=== PATIENT | male | born 1945 | race Caucasian/White ===

== ENCOUNTER → 2017-08-09 | Outpatient (CLI) | payer MEDICARE, MEDICAID ==
[~2017-08-09] MED LIST: AMLO5TAB2 PO; GEMF600T3 PO; LEVE500T22 PO
[2017-08-09 11:52] LABS: Creatine Kinase IFCC 63 U/L (39-308)
[2017-08-09 13:29] LABS: Cholesterol 126 mg/dL (< 200); HDL Cholesterol 36 mg/dL (40-59); LDL Cholesterol 79 mg/dL (< 100); Triglycerides 146 mg/dL (< 150)
== END | disposition home or self-care (01) ==
LOC: LAB 09:45
PROVIDERS: ATTEND Internal Medicine
DX: K70.0 Alcoholic fatty liver (principal); E78.1 Pure hyperglyceridemia; M54.5 Low back pain; I10 Essential (primary) hypertension; N52.9 Male erectile dysfunction, unspecified
CPT/HCPCS: 36415; 80061; 82550; 84153; 85652

== ENCOUNTER → 2017-10-22 | Outpatient (CLI) | payer MEDICARE, OTHER ==
[2017-10-22 13:39] LABS: Urine Bacteria NONE SEEN /hpf (None Seen); Urine Blood Negative /uL (Negative); Urine Mucus FEW (None Seen); Urine Specific Gravity 1.018 (1.001-1.035); Urine WBC 3 /hpf (0 - 3)
== END | disposition home or self-care (01) ==
LOC: LAB 12:40
PROVIDERS: ATTEND Internal Medicine
DX: I10 Essential (primary) hypertension (principal); K76.0 Fatty (change of) liver, not elsewhere classified; E78.2 Mixed hyperlipidemia
CPT/HCPCS: 36415; 81001; 84443

== ENCOUNTER → 2017-10-31 | Outpatient (CLI) | payer MEDICARE, OTHER | END | disposition home or self-care (01) | LOC: XY 08:00 | PROVIDERS: ATTEND Internal Medicine | DX: I10 Essential (primary) hypertension (principal); Z86.73 Personal history of transient ischemic attack (TIA), and cerebral infarction without residual deficits; Z87.891 Personal history of nicotine dependence | CPT/HCPCS: 93886 ==

== ENCOUNTER → 2017-11-12 | Outpatient (CLI) | payer MEDICARE, OTHER | END | disposition home or self-care (01) | LOC: XYW 07:49 | PROVIDERS: ATTEND Internal Medicine | DX: I70.0 Atherosclerosis of aorta (principal); I35.1 Nonrheumatic aortic (valve) insufficiency; I10 Essential (primary) hypertension; Z87.891 Personal history of nicotine dependence | CPT/HCPCS: 93306 ==

== ENCOUNTER → 2019-08-25 | Outpatient (CLI) | payer MEDICARE, OTHER ==
[~2019-08-25] MED LIST changes: +AMLO5TAB15 PO; -AMLO5TAB2 PO; -GEMF600T3 PO; +GEMF600T7 PO; +PERCOT PO; +TAM04C PO
== END | disposition home or self-care (01) ==
LOC: LAB 10:31
PROVIDERS: ATTEND Surgery
DX: Z01.812 Encounter for preprocedural laboratory examination (principal)
CPT/HCPCS: 36415; 82565; 84520

== ENCOUNTER → 2019-09-23 | Outpatient (CLI) | payer MEDICARE, OTHER ==
[~2019-09-23] MED LIST changes: +CHLO25TA22 PO; -LEVE500T22 PO; +LEVE500T32 PO; +NAP500T PO; +NIAC500T58 PO; +TIZA4CAP PO; +TRAM50TA2 PO
[2019-09-23 14:44] LABS: BUN/Creatinine Ratio 19.4; Calcium 9.3 mg/dL (8.5-10.1)
[2019-09-23 14:52] LABS: Potassium 2.7 mmol/L (3.5-5.1)
== END | disposition home or self-care (01) ==
LOC: LAB 13:56
PROVIDERS: ATTEND Internal Medicine
DX: I10 Essential (primary) hypertension (principal)
CPT/HCPCS: 36415; 80048; 83735

== ENCOUNTER 2019-11-04 07:47 | Inpatient (IN) | payer MEDICARE, OTHER ==
[2019-11-02 12:02] LABS: Basophils # (auto) 0.1 10 ^3/uL (0-0.2); Basophils % (auto) 0.8 % (0.0-2.0); Eosinophils # (auto) 0.3 10 ^3/uL (0-0.8); Eosinophils % (auto) 4.5 % (0.0-7.0); Hematocrit 42.5 % (41.0-53.0); Hemoglobin 14.5 g/dL (13.5-17.5); Lymphocytes # (auto) 1.8 10 ^3/uL (0.4-5.4); Lymphocytes % (auto) 25.8 % (10.0-50.0); Mean Corpuscular Hemoglobin 30.4 pg (28.0-32.0); Mean Corpuscular Volume 89.4 fL (80.0-100.0); Monocytes # (auto) 0.6 10 ^3/uL (0-1.3); Monocytes % (auto) 9.1 % (0.0-12.0); Neutrophils # (auto) 4.1 10 ^3/uL (1.6-8.6); Neutrophils % (auto) 59.8 % (37.0-80.0); Nucleated Red Blood Cells % 0.1 %; Platelet Count (auto) 220 10^3/uL (140-450); Red Blood Cells 4.75 10^6/uL (4.5-5.90); Red Cell Distribution Width 13.3 % (11.8-14.3); White Blood Cell 6.8 10^3/uL (4.4-10.8)
[2019-11-02 12:15] LABS: INR 1.02 (0.9-1.15); Partial Thromboplastin Time 26.7 sec (23.64-32.05)
[2019-11-02 12:22] LABS: Urine Bacteria NONE SEEN /hpf (None Seen); Urine Blood Negative /uL (Negative); Urine Mucus FEW (None Seen); Urine Specific Gravity 1.023 (1.001-1.035); Urine WBC 5 /hpf (0 - 3)
[2019-11-02 12:23] LABS: Albumin 3.5 g/dL (3.4-5.0); Calcium 8.9 mg/dL (8.5-10.1); Potassium 3.4 mmol/L (3.5-5.1)
[2019-11-02 12:26] LABS: Bilirubin, Total 0.4 mg/dL (0.2-1.0); Total Protein 6.7 g/dL (6.4-8.2)
[2019-11-04] VITALS (57 sets, daily range): BP systolic 84–206; BP diastolic 48–115
[~2019-11-04] VITALS: Ht 177.8 cm; Wt 66.1 kg
[~2019-11-04 07:47] MED LIST changes: +LEVE500T22 PO; -LEVE500T32 PO; -TAM04C PO
[2019-11-04] MEDS ORDERED: ceFAZolin 1GM/50ML 50 ML IV ONE (08:31)
[2019-11-04] MEDS ORDERED: POVIDONE IODINE 10 % TOPICAL OINT 30GM TOP ONE (09:57)
[2019-11-04] MEDS ORDERED: MIDAZOLAM HCL 1MG/1ML-2 ML VIAL ONE ×2 (10:02→11:25)
[2019-11-04] MEDS ORDERED: LIDOCAINE 1% (LOCAL ANESTH.) PF 5ml SDV ONE (10:03)
[2019-11-04] MEDS ORDERED: ROCURONIUM 10MG/ML 10ML VIAL IV ONE (10:03)
[2019-11-04] MEDS ORDERED: ETOMIDATE (2MG/ML) 20ML VIAL IV ONE (10:03)
[2019-11-04] MEDS ORDERED: HYDROmorphone HCL 2 MG/ML VL IV PRN ×3 (10:30→13:00)
[2019-11-04] MEDS ORDERED: ONDANSETRON HCL 4 MG/2 ML VIAL IV PRN (10:30)
[2019-11-04] MEDS ORDERED: NALOXONE HCL 0.4 MG/ML VIAL IV PRN (10:30)
[2019-11-04] MEDS ORDERED: fentaNYL CITRATE 100 MCG/2 ML VL ONE (10:32)
[2019-11-04] MEDS ORDERED: SODIUM CHLORIDE LOCK 10 ML ONE ×2 (10:33→10:47)
[2019-11-04] MEDS ORDERED: GLYCOPYRROLATE 0.2 MG/ML 1ML VIAL ONE (10:42)
[2019-11-04] MEDS ORDERED: PHENYLEPHRINE HCL 10 MG/ML VL ONE (10:47)
[2019-11-04] MEDS ORDERED: STERILE WATER 10 ML ONE ×2 (10:49→11:05)
[2019-11-04] MEDS ORDERED: ePHEDrine SULFATE 50 MG/ML AMP ONE (10:49)
[2019-11-04] MEDS ORDERED: ALBUMIN 25% 100 ML IV ONE (10:51)
[2019-11-04] MEDS ORDERED: D5W/SOD CHL 0.45%/KCL 20MEQ 1,000 ML IV SCH (12:15)
[2019-11-04] MEDS ORDERED: MIDAZOLAM HCL 5 MG/ML-1ML VIAL ONE (12:26)
[2019-11-04] MEDS ORDERED: MIDAZOLAM HCL 5 MG/ML-1ML VIAL IV ONE ×2 (12:28→12:30)
[2019-11-04] MEDS ORDERED: PANTOPRAZOLE 40 MG/10 ML VIAL INJ IV ONE (12:30)
[2019-11-04] MEDS: fentaNYL Drip 2500mCg/250mlNS 250 ML IV SCH (12:49)
[2019-11-04] MEDS: MIDAZOLAM DRIP 50 mg/50mL 50 ML IV SCH (12:49)
[2019-11-04] MEDS ORDERED: NITROGLYCERIN 0.4 MG SL TAB SL PRN (13:00)
[2019-11-04] MEDS ORDERED: MORPHINE SULF INJ 2 MG/ML SYRINGE 1ML IV PRN (13:00)
[2019-11-04] MEDS ORDERED: MIDAZOLAM DRIP 50 mg/50mL 50 ML IV ONE (13:10)
[2019-11-04] MEDS ORDERED: fentaNYL Drip 2500mCg/250mlNS 250 ML IV ONE (13:10)
[2019-11-04] MEDS ORDERED: NOREPINEPHRINE 8 MG/250ML KIT 250 ML IV ONE (13:22)
[2019-11-04 13:27] LABS: Basophils # (auto) 0 10 ^3/uL (0-0.2); Basophils % (auto) 0.3 % (0.0-2.0); Eosinophils # (auto) 0.2 10 ^3/uL (0-0.8); Eosinophils % (auto) 1.8 % (0.0-7.0); Hematocrit 37.5 % (41.0-53.0); Hemoglobin 12.9 g/dL (13.5-17.5); Lymphocytes # (auto) 1.5 10 ^3/uL (0.4-5.4); Lymphocytes % (auto) 15.1 % (10.0-50.0); Mean Corpuscular Hemoglobin 30.9 pg (28.0-32.0); Mean Corpuscular Hgb Conc. 34.3 g/dL (32.0-36.0); Mean Corpuscular Volume 90.1 fL (80.0-100.0); Monocytes # (auto) 0.8 10 ^3/uL (0-1.3); Monocytes % (auto) 8.3 % (0.0-12.0); Neutrophils # (auto) 7.3 10 ^3/uL (1.6-8.6); Neutrophils % (auto) 74.5 % (37.0-80.0); Platelet Count (auto) 162 10^3/uL (140-450); Red Blood Cells 4.16 10^6/uL (4.5-5.90); White Blood Cell 9.7 10^3/uL (4.4-10.8)
[2019-11-04] MEDS ORDERED: NOREPINEPHRINE 8 MG/250ML KIT 250 ML IV SCH (13:30)
[2019-11-04 13:46] LABS: Albumin 3.1 g/dL (3.4-5.0); BUN/Creatinine Ratio 25.8; Calcium 7.8 mg/dL (8.5-10.1); Magnesium 1.9 mg/dL (1.6-2.6); Potassium 3.4 mmol/L (3.5-5.1)
[2019-11-04 13:48] LABS: Bilirubin, Total 0.9 mg/dL (0.2-1.0); INR 1.2 (0.9-1.15); Partial Thromboplastin Time 28.2 sec (23.64-32.05); Total Protein 5.3 g/dL (6.4-8.2)
[2019-11-04] MEDS: ceFAZolin 1GM/50ML 50 ML IV SCH ×2 (14:00→22:00)
[2019-11-04] MEDS: SODIUM CHLORIDE 0.9% 1,000 ML IV SCH ×2 (19:48→21:00)
[2019-11-04] MEDS: NOREPINEPHRINE 8 MG/250ML KIT 250 ML IV SCH (20:45)
[2019-11-04 22:18] LABS: Basophils # (auto) 0 10 ^3/uL (0-0.2); Basophils % (auto) 0.5 % (0.0-2.0); Eosinophils # (auto) 0.1 10 ^3/uL (0-0.8); Eosinophils % (auto) 1.3 % (0.0-7.0); Hemoglobin 12.3 g/dL (13.5-17.5); Lymphocytes # (auto) 1.5 10 ^3/uL (0.4-5.4); Lymphocytes % (auto) 17.5 % (10.0-50.0); Mean Corpuscular Hemoglobin 30.6 pg (28.0-32.0); Mean Corpuscular Hgb Conc. 34.2 g/dL (32.0-36.0); Mean Corpuscular Volume 89.5 fL (80.0-100.0); Monocytes # (auto) 0.8 10 ^3/uL (0-1.3); Monocytes % (auto) 9.2 % (0.0-12.0); Neutrophils # (auto) 6.1 10 ^3/uL (1.6-8.6); Neutrophils % (auto) 71.5 % (37.0-80.0); Nucleated Red Blood Cells % 0.2 %; Platelet Count (auto) 141 10^3/uL (140-450); Red Blood Cells 4.02 10^6/uL (4.5-5.90); Red Cell Distribution Width 14.2 % (11.8-14.3); White Blood Cell 8.5 10^3/uL (4.4-10.8)
[2019-11-04 22:32] LABS: BUN/Creatinine Ratio 32.2; Calcium 7.5 mg/dL (8.5-10.1); Potassium 3.5 mmol/L (3.5-5.1)
[2019-11-04 22:34] LABS: INR 1.12 (0.9-1.15); Partial Thromboplastin Time 29.4 sec (23.64-32.05)
[2019-11-05] VITALS (106 sets, daily range): BP systolic 81–129; BP diastolic 32–68
[2019-11-05] MEDS: MIDAZOLAM DRIP 50 mg/50mL 50 ML IV SCH ×2 (01:30→10:33)
[2019-11-05 04:22] LABS: Basophils # (auto) 0 10 ^3/uL (0-0.2); Basophils % (auto) 0.3 % (0.0-2.0); Eosinophils # (auto) 0.2 10 ^3/uL (0-0.8); Eosinophils % (auto) 3.1 % (0.0-7.0); Hematocrit 34.8 % (41.0-53.0); Lymphocytes # (auto) 1.7 10 ^3/uL (0.4-5.4); Lymphocytes % (auto) 22.1 % (10.0-50.0); Mean Corpuscular Hemoglobin 30.8 pg (28.0-32.0); Mean Corpuscular Hgb Conc. 34.4 g/dL (32.0-36.0); Mean Corpuscular Volume 89.6 fL (80.0-100.0); Monocytes # (auto) 0.9 10 ^3/uL (0-1.3); Monocytes % (auto) 11.8 % (0.0-12.0); Neutrophils # (auto) 4.7 10 ^3/uL (1.6-8.6); Neutrophils % (auto) 62.7 % (37.0-80.0); Platelet Count (auto) 146 10^3/uL (140-450); Red Blood Cells 3.88 10^6/uL (4.5-5.90); Red Cell Distribution Width 14.3 % (11.8-14.3); White Blood Cell 7.5 10^3/uL (4.4-10.8)
[2019-11-05 04:40] LABS: Albumin 2.7 g/dL (3.4-5.0); Calcium 7.5 mg/dL (8.5-10.1); Potassium 3.4 mmol/L (3.5-5.1)
[2019-11-05 04:45] LABS: Total Protein 4.7 g/dL (6.4-8.2)
[2019-11-05] MEDS: SODIUM CHLORIDE 0.9% 1,000 ML IV SCH ×3 (04:49→21:00)
[2019-11-05] MEDS: ceFAZolin 1GM/50ML 50 ML IV SCH ×3 (05:37→22:00)
[2019-11-05] MEDS: PANTOPRAZOLE 40 MG/10 ML VIAL INJ IV SCH (10:32)
[2019-11-05] MEDS ORDERED: POTASSIUM CHLORIDE 40 MEQ, LIDOCAINE 1% (LOCAL ANESTH.) 4 ML in SODIUM CHL 0.9% 100 ML IV ONE (13:15)
[2019-11-05] MEDS: fentaNYL Drip 2500mCg/250mlNS 250 ML IV SCH (13:23)
[2019-11-05] MEDS: NOREPINEPHRINE 8 MG/250ML KIT 250 ML IV SCH (14:51)
[2019-11-05] MEDS: PROPOFOL 100 ML IV SCH (17:59)
[2019-11-06] VITALS (78 sets, daily range): BP systolic 74–202; BP diastolic 37–126
[2019-11-06 03:56] LABS: Basophils # (auto) 0 10 ^3/uL (0-0.2); Basophils % (auto) 0.4 % (0.0-2.0); Eosinophils # (auto) 0.3 10 ^3/uL (0-0.8); Eosinophils % (auto) 3.1 % (0.0-7.0); Hematocrit 34.1 % (41.0-53.0); Hemoglobin 11.6 g/dL (13.5-17.5); Lymphocytes # (auto) 1.9 10 ^3/uL (0.4-5.4); Lymphocytes % (auto) 18.5 % (10.0-50.0); Mean Corpuscular Hemoglobin 30.8 pg (28.0-32.0); Mean Corpuscular Hgb Conc. 34.1 g/dL (32.0-36.0); Mean Corpuscular Volume 90.2 fL (80.0-100.0); Monocytes # (auto) 1.2 10 ^3/uL (0-1.3); Monocytes % (auto) 11.2 % (0.0-12.0); Neutrophils # (auto) 6.9 10 ^3/uL (1.6-8.6); Neutrophils % (auto) 66.8 % (37.0-80.0); Platelet Count (auto) 143 10^3/uL (140-450); Red Blood Cells 3.78 10^6/uL (4.5-5.90); Red Cell Distribution Width 14.5 % (11.8-14.3); White Blood Cell 10.4 10^3/uL (4.4-10.8)
[2019-11-06 04:10] LABS: INR 1.08 (0.9-1.15); Partial Thromboplastin Time 34.3 sec (23.64-32.05)
[2019-11-06 04:18] LABS: Potassium 3.2 mmol/L (3.5-5.1)
[2019-11-06 04:27] LABS: Albumin 2.4 g/dL (3.4-5.0); BUN/Creatinine Ratio 28.3; Bilirubin, Total 0.6 mg/dL (0.2-1.0); Total Protein 4.8 g/dL (6.4-8.2)
[2019-11-06] MEDS: SODIUM CHLORIDE 0.9% 1,000 ML IV SCH ×3 (05:03→15:00)
[2019-11-06] MEDS: ceFAZolin 1GM/50ML 50 ML IV SCH ×3 (06:00→22:00)
[2019-11-06] MEDS: fentaNYL Drip 2500mCg/250mlNS 250 ML IV SCH (07:48)
[2019-11-06] MEDS: PANTOPRAZOLE 40 MG/10 ML VIAL INJ IV SCH (09:40)
[2019-11-06] MEDS: PROPOFOL 100 ML IV SCH (11:50)
[2019-11-06] MEDS: MIDAZOLAM DRIP 50 mg/50mL 50 ML IV SCH (12:49)
[2019-11-06] MEDS: DexMEDEtomidine 400 MCG in D5W 5% 96 ML IV SCH (13:23)
[2019-11-06] MEDS ORDERED: POTASSIUM CHLORIDE 40 MEQ, LIDOCAINE 1% (LOCAL ANESTH.) 4 ML in SODIUM CHL 0.9% 100 ML IV ONE (15:00)
[2019-11-06] MEDS: HYDROmorphone HCL 2 MG/ML VL IV PRN ×3 (15:47→21:22)
[2019-11-06] MEDS: NOREPINEPHRINE 8 MG/250ML KIT 250 ML IV SCH (20:45)
[2019-11-07] VITALS (18 sets, daily range): BP systolic 114–158; BP diastolic 27–90
[2019-11-07] MEDS: HYDROmorphone HCL 2 MG/ML VL IV PRN ×6 (01:45→23:20)
[2019-11-07] MEDS: SODIUM CHLORIDE 0.9% 1,000 ML IV SCH (04:25)
[2019-11-07 04:35] LABS: Basophils # (auto) 0 10 ^3/uL (0-0.2); Basophils % (auto) 0.4 % (0.0-2.0); Eosinophils # (auto) 0.2 10 ^3/uL (0-0.8); Eosinophils % (auto) 1.7 % (0.0-7.0); Hematocrit 34.8 % (41.0-53.0); Hemoglobin 11.9 g/dL (13.5-17.5); Lymphocytes # (auto) 1.4 10 ^3/uL (0.4-5.4); Lymphocytes % (auto) 16.3 % (10.0-50.0); Mean Corpuscular Hemoglobin 30.7 pg (28.0-32.0); Mean Corpuscular Hgb Conc. 34.2 g/dL (32.0-36.0); Mean Corpuscular Volume 89.9 fL (80.0-100.0); Monocytes # (auto) 1.1 10 ^3/uL (0-1.3); Neutrophils # (auto) 6.1 10 ^3/uL (1.6-8.6); Neutrophils % (auto) 69.6 % (37.0-80.0); Nucleated Red Blood Cells % 0.1 %; Platelet Count (auto) 141 10^3/uL (140-450); Red Blood Cells 3.87 10^6/uL (4.5-5.90); Red Cell Distribution Width 13.7 % (11.8-14.3); White Blood Cell 8.8 10^3/uL (4.4-10.8)
[2019-11-07 04:54] LABS: Calcium 8.6 mg/dL (8.5-10.1)
[2019-11-07 04:56] LABS: Potassium 2.7 mmol/L (3.5-5.1)
[2019-11-07] MEDS: ceFAZolin 1GM/50ML 50 ML IV SCH ×3 (06:00→22:00)
[2019-11-07] MEDS ORDERED: POTASSIUM CHL 20MEQ/100ML 100 ML IV SCH (07:30)
[2019-11-07] MEDS: PANTOPRAZOLE 40 MG/10 ML VIAL INJ IV SCH (08:25)
[2019-11-07] MEDS: POTASSIUM CHL 20MEQ/100ML 100 ML IV SCH ×3 (08:26→12:10)
[2019-11-07] MEDS: fentaNYL Drip 2500mCg/250mlNS 250 ML IV SCH (09:48)
[2019-11-07] MEDS: MIDAZOLAM DRIP 50 mg/50mL 50 ML IV SCH (09:48)
[2019-11-07] MEDS: PROPOFOL 100 ML IV SCH (09:49)
[2019-11-07] MEDS: DexMEDEtomidine 400 MCG in D5W 5% 96 ML IV SCH (09:49)
[2019-11-07] MEDS ORDERED: ENOXAPARIN SOD 30 MG/0.3 ML SYRINGE SC ONE (11:30)
[2019-11-07] MEDS ORDERED: PPN PER PHARMACY 0 ML IV SCH ×2 (14:45→15:00)
[2019-11-07 14:57] LABS: Phosphorus 2.1 mg/dL (2.5-4.90)
[2019-11-07 15:01] LABS: Pre Albumin 11.5 mg/dL (20.0-40.0)
[2019-11-07] MEDS ORDERED: POTASSIUM PHOSPHATE 22 MEQ in SODIUM CHL 0.9% 100 ML IV ONE (15:15)
[2019-11-07] MEDS: SOD CHL 0.9%/ KCL 40MEQ 1,000 ML IV SCH (15:24)
[2019-11-07] MEDS ORDERED: AMINO ACID INFUSION IN D5W 2,000 ML IV ONE (20:00)
[2019-11-08] VITALS: BP 137/76
[2019-11-08] MEDS ORDERED: DEXTROSE (50%) 50ML SYRG IV SCH
[2019-11-08] MEDS: HYDROmorphone HCL 2 MG/ML VL IV PRN ×4 (02:58→20:04)
[2019-11-08 03:59] LABS: Basophils # (auto) 0 10 ^3/uL (0-0.2); Basophils % (auto) 0.5 % (0.0-2.0); Eosinophils # (auto) 0.4 10 ^3/uL (0-0.8); Eosinophils % (auto) 6.4 % (0.0-7.0); Hematocrit 31.7 % (41.0-53.0); Hemoglobin 11.1 g/dL (13.5-17.5); Lymphocytes # (auto) 1.2 10 ^3/uL (0.4-5.4); Lymphocytes % (auto) 19.7 % (10.0-50.0); Mean Corpuscular Hemoglobin 31.1 pg (28.0-32.0); Mean Corpuscular Volume 88.9 fL (80.0-100.0); Monocytes # (auto) 0.8 10 ^3/uL (0-1.3); Monocytes % (auto) 13.3 % (0.0-12.0); Neutrophils # (auto) 3.7 10 ^3/uL (1.6-8.6); Neutrophils % (auto) 60.1 % (37.0-80.0); Platelet Count (auto) 153 10^3/uL (140-450); Red Blood Cells 3.57 10^6/uL (4.5-5.90); Red Cell Distribution Width 13.8 % (11.8-14.3); White Blood Cell 6.2 10^3/uL (4.4-10.8)
[2019-11-08 04:15] LABS: Potassium 3.1 mmol/L (3.5-5.1)
[2019-11-08 04:22] LABS: Albumin 2.5 g/dL (3.4-5.0); BUN/Creatinine Ratio 18.4; Bilirubin, Total 0.7 mg/dL (0.2-1.0); Calcium 8.4 mg/dL (8.5-10.1); Phosphorus 2.2 mg/dL (2.5-4.90); Total Protein 5.3 g/dL (6.4-8.2)
[2019-11-08] MEDS: ceFAZolin 1GM/50ML 50 ML IV SCH ×3 (04:55→20:04)
[2019-11-08] MEDS: SOD CHL 0.9%/ KCL 40MEQ 1,000 ML IV SCH ×2 (04:55→14:10)
[2019-11-08] MEDS: ACCU-CHEK COMFORT CURVE STRIP VI SCH ×4 (06:00→17:03)
[2019-11-08] MEDS: InsuLIN REG 1unit/0.01ml Soln (100units/ml) SC SCH ×4 (06:00→17:03)
[2019-11-08 08:00] VITALS: BP 137/80
[2019-11-08] MEDS: PANTOPRAZOLE 40 MG/10 ML VIAL INJ IV SCH (08:29)
[2019-11-08] MEDS: POTASSIUM CHL 20MEQ/100ML 100 ML IV SCH ×2 (08:30→10:52)
[2019-11-08] MEDS: ENOXAPARIN SOD 30 MG/0.3 ML SYRINGE SC SCH (09:24)
[2019-11-08 11:28] VITALS: BP 169/80
[2019-11-08] MEDS ORDERED: hydrALAZINE HCL 20 MG/ML VL IV ONE (13:15)
[2019-11-08 15:41] VITALS: BP 142/70
[2019-11-08] MEDS ORDERED: hydrALAZINE HCL 20 MG/ML VL IV PRN (18:00)
[2019-11-08] MEDS: TAMSULOSIN HYDROCHLORIDE 0.4 MG CAP PO SCH (18:21)
[2019-11-08 20:00] VITALS: BP 144/76
[2019-11-08] MEDS ORDERED: PPN PER PHARMACY IV NR ×9 (20:00)
[2019-11-08] MEDS: levETIRAcetam 500 MG TAB PO SCH (20:03)
[2019-11-09] VITALS: BP 144/76
[2019-11-09] MEDS: HYDROmorphone HCL 2 MG/ML VL IV PRN ×2 (00:45→08:25)
[2019-11-09 04:00] VITALS: BP 101/48
[2019-11-09 04:08] LABS: Albumin 2.6 g/dL (3.4-5.0); Calcium 8.8 mg/dL (8.5-10.1); Magnesium 2.2 mg/dL (1.6-2.6)
[2019-11-09 04:12] LABS: Bilirubin, Total 0.6 mg/dL (0.2-1.0); Phosphorus 2.4 mg/dL (2.5-4.90); Total Protein 5.4 g/dL (6.4-8.2)
[2019-11-09 04:17] LABS: Potassium 2.9 mmol/L (3.5-5.1)
[2019-11-09 04:20] LABS: BUN/Creatinine Ratio 20.8
[2019-11-09] MEDS ORDERED: SODIUM PHOSPHATES 24 MEQ in SODIUM CHL 0.9% 100 ML IV ONE (05:30)
[2019-11-09] MEDS ORDERED: POTASSIUM EFFERVESENT TAB 25 MEQ PO ONE (05:30)
[2019-11-09] MEDS: InsuLIN REG 1unit/0.01ml Soln (100units/ml) SC SCH ×2 (06:00)
[2019-11-09] MEDS: ACCU-CHEK COMFORT CURVE STRIP VI SCH ×2 (06:28)
[2019-11-09] MEDS: POTASSIUM CHL 20MEQ/100ML 100 ML IV SCH ×3 (06:58→09:56)
[2019-11-09] MEDS: ceFAZolin 1GM/50ML 50 ML IV SCH ×3 (06:59→21:55)
[2019-11-09 07:40] VITALS: BP 103/55
[2019-11-09] MEDS: levETIRAcetam 500 MG TAB PO SCH ×2 (09:52→21:55)
[2019-11-09] MEDS: PANTOPRAZOLE 40 MG/10 ML VIAL INJ IV SCH (09:52)
[2019-11-09] MEDS: ENOXAPARIN SOD 30 MG/0.3 ML SYRINGE SC SCH (09:59)
[2019-11-09 11:40] VITALS: BP 109/60
[2019-11-09 12:08] LABS: Phosphorus 3.3 mg/dL (2.5-4.90)
[2019-11-09] MEDS: traMADol HCL 50 MG TAB PO PRN ×2 (12:21→18:28)
[2019-11-09 15:50] VITALS: BP 130/70
[2019-11-09] MEDS: TAMSULOSIN HYDROCHLORIDE 0.4 MG CAP PO SCH (18:28)
[2019-11-10] VITALS: BP 148/76
[2019-11-10 04:00] VITALS: BP 153/78
[2019-11-10 04:08] LABS: BUN/Creatinine Ratio 24.5; Calcium 8.9 mg/dL (8.5-10.1); Potassium 3.3 mmol/L (3.5-5.1)
[2019-11-10] MEDS: ceFAZolin 1GM/50ML 50 ML IV SCH ×3 (05:39→23:16)
[2019-11-10] MEDS: traMADol HCL 50 MG TAB PO PRN ×2 (05:54→18:20)
[2019-11-10] MEDS: POTASSIUM CHL 20MEQ/100ML 100 ML IV SCH ×2 (06:40→08:30)
[2019-11-10 09:00] VITALS: BP 148/89
[2019-11-10] MEDS: levETIRAcetam 500 MG TAB PO SCH ×2 (09:08→23:15)
[2019-11-10] MEDS: ENOXAPARIN SOD 30 MG/0.3 ML SYRINGE SC SCH (09:09)
[2019-11-10] MEDS: HYDROmorphone HCL 2 MG/ML VL IV PRN ×3 (10:52→23:20)
[2019-11-10] MEDS ORDERED: POTASSIUM CHL 20 Meq TABLET PO ONE (12:15)
[2019-11-10] MEDS ORDERED: amLODIPine BESYLATE 5 MG TAB PO ONE (12:15)
[2019-11-10 13:00] VITALS: BP 113/77
[2019-11-10 17:00] VITALS: BP 117/73
[2019-11-10] MEDS: TAMSULOSIN HYDROCHLORIDE 0.4 MG CAP PO SCH (18:04)
[2019-11-10 22:00] VITALS: BP 123/58
[2019-11-11 05:00] VITALS: BP 120/70
[2019-11-11 05:43] LABS: Basophils # (auto) 0 10 ^3/uL (0-0.2); Eosinophils # (auto) 0.4 10 ^3/uL (0-0.8); Eosinophils % (auto) 10.3 % (0.0-7.0); Hematocrit 33.3 % (41.0-53.0); Hemoglobin 11.6 g/dL (13.5-17.5); Lymphocytes # (auto) 1.2 10 ^3/uL (0.4-5.4); Lymphocytes % (auto) 28.9 % (10.0-50.0); Mean Corpuscular Hemoglobin 30.9 pg (28.0-32.0); Mean Corpuscular Hgb Conc. 34.7 g/dL (32.0-36.0); Monocytes # (auto) 0.6 10 ^3/uL (0-1.3); Monocytes % (auto) 13.3 % (0.0-12.0); Neutrophils % (auto) 46.5 % (37.0-80.0); Nucleated Red Blood Cells % 0.1 %; Platelet Count (auto) 205 10^3/uL (140-450); Red Blood Cells 3.75 10^6/uL (4.5-5.90); Red Cell Distribution Width 14.2 % (11.8-14.3); White Blood Cell 4.2 10^3/uL (4.4-10.8)
[2019-11-11 05:56] LABS: Albumin 2.9 g/dL (3.4-5.0); Calcium 8.9 mg/dL (8.5-10.1); Potassium 3.7 mmol/L (3.5-5.1)
[2019-11-11 06:00] LABS: Bilirubin, Total 0.5 mg/dL (0.2-1.0); Total Protein 5.9 g/dL (6.4-8.2)
[2019-11-11] MEDS: ceFAZolin 1GM/50ML 50 ML IV SCH ×2 (06:09→13:57)
[2019-11-11] MEDS: traMADol HCL 50 MG TAB PO PRN ×2 (06:10→13:57)
[2019-11-11 08:00] VITALS: BP 126/69
[2019-11-11] MEDS ORDERED: amLODIPine BESYLATE 5 MG TAB PO SCH (10:00)
[2019-11-11] MEDS: levETIRAcetam 500 MG TAB PO SCH (10:30)
[2019-11-11 13:00] VITALS: BP 149/80
[2019-11-11 15:56] VITALS: BP 128/65
== END 2019-11-11 17:50 | disposition home or self-care (01) | DRG 414 ==
LOC: SUR 07:47 → ICU WEST 07:48 → ICU CENTRL 11-07 09:33 → DOU IN ICU 11-07 10:10 → TELE-WESTW 11-10 07:30
PROVIDERS: ADMIT Surgery; ATTEND Internal Medicine
PROC: 0BH17EZ Insertion of Endotracheal Airway into Trachea, Via Natural or Artificial Opening (ICD-10-PCS; 2019-11-04)
PROC: 06Q80ZZ Repair Portal Vein, Open Approach (ICD-10-PCS; 2019-11-04)
PROC: 0FT40ZZ Resection of Gallbladder, Open Approach (ICD-10-PCS; 2019-11-04)
PROC: 0FJ44ZZ Inspection of Gallbladder, Percutaneous Endoscopic Approach (ICD-10-PCS; 2019-11-04)
PROC: 30233N1 Transfusion of Nonautologous Red Blood Cells into Peripheral Vein, Percutaneous Approach (ICD-10-PCS; 2019-11-04)
PROC: 30233K1 Transfusion of Nonautologous Frozen Plasma into Peripheral Vein, Percutaneous Approach (ICD-10-PCS; 2019-11-04)
PROC: 5A1945Z Respiratory Ventilation, 24-96 Consecutive Hours (ICD-10-PCS; principal; 2019-11-04 10:01)
DX: K80.10 Calculus of gallbladder with chronic cholecystitis without obstruction (principal); J96.00 Acute respiratory failure, unspecified whether with hypoxia or hypercapnia; K85.90 Acute pancreatitis without necrosis or infection, unspecified; I97.52 Accidental puncture and laceration of a circulatory system organ or structure during other procedure; J98.11 Atelectasis; E87.2 Acidosis; G25.81 Restless legs syndrome; N40.0 Benign prostatic hyperplasia without lower urinary tract symptoms; I10 Essential (primary) hypertension; G89.29 Other chronic pain; M54.5 Low back pain; D64.9 Anemia, unspecified; I95.9 Hypotension, unspecified; K66.0 Peritoneal adhesions (postprocedural) (postinfection); Z53.31 Laparoscopic surgical procedure converted to open procedure; Z79.899 Other long term (current) drug therapy; Z80.0 Family history of malignant neoplasm of digestive organs; Z82.0 Family history of epilepsy and other diseases of the nervous system; Y83.8 Other surgical procedures as the cause of abnormal reaction of the patient, or of later complication, without mention of misadventure at the time of the procedure
CPT/HCPCS: 36415; 36600; 71045; 74018; 80048; 80053; 81001; 82040; 82805; 82962; 83735; 84100; 84132; 84478; 85025; 85610; 85730; 86850; 86900; 86901; 86920; 87040; 87070; 87081; 87205; 87635; 94002; 94003; 97116; 97163; 97530; A4565; C9113; G0378; J0690; J2001; J2250; J2704; J3480; J7060; P9047

== ENCOUNTER → 2020-08-23 | Outpatient (CLI) | payer MEDICARE, OTHER ==
[~2020-08-23] MED LIST changes: +AMLO-489 PO; -AMLO5TAB15 PO; -CHLO25TA22 PO; -GEMF600T7 PO; -LEVE500T22 PO; +LEVE500T32 PO; -NAP500T PO; -NIAC500T58 PO; -PERCOT PO; -TIZA4CAP PO; -TRAM50TA2 PO
[2020-08-23 12:45] LABS: Basophils # (auto) 0.1 10 ^3/uL (0-0.2); Basophils % (auto) 0.8 % (0.0-2.0); Eosinophils # (auto) 0.3 10 ^3/uL (0-0.8); Eosinophils % (auto) 4.4 % (0.0-7.0); Hematocrit 43.3 % (41.0-53.0); Hemoglobin 15.1 g/dL (13.5-17.5); Lymphocytes # (auto) 1.7 10 ^3/uL (0.4-5.4); Lymphocytes % (auto) 28.3 % (10.0-50.0); Mean Corpuscular Hgb Conc. 34.8 g/dL (32.0-36.0); Mean Corpuscular Volume 91.9 fL (80.0-100.0); Monocytes # (auto) 0.6 10 ^3/uL (0-1.3); Monocytes % (auto) 10.4 % (0.0-12.0); Neutrophils # (auto) 3.4 10 ^3/uL (1.6-8.6); Neutrophils % (auto) 56.1 % (37.0-80.0); Nucleated Red Blood Cells % 0.2 %; Platelet Count (auto) 201 10^3/uL (140-450); Red Blood Cells 4.71 10^6/uL (4.5-5.90); Red Cell Distribution Width 12.4 % (11.8-14.3); White Blood Cell 6.1 10^3/uL (4.4-10.8)
[2020-08-23 14:02] LABS: Albumin 3.8 g/dL (3.4-5.0); BUN/Creatinine Ratio 18.2; Bilirubin, Total 0.5 mg/dL (0.2-1.0); CRP High Sensitivity 0.37 mg/dL (< 0.3); Calcium 9.5 mg/dL (8.5-10.1)
[2020-08-24 17:20] LABS: Urine Bacteria NONE SEEN /hpf (None Seen); Urine Blood Negative /uL (Negative); Urine Specific Gravity 1.012 (1.001-1.035); Urine WBC 2 /hpf (0 - 3)
== END | disposition home or self-care (01) ==
LOC: LAB 12:29
PROVIDERS: ATTEND Internal Medicine
DX: D64.9 Anemia, unspecified (principal); R73.9 Hyperglycemia, unspecified; N40.0 Benign prostatic hyperplasia without lower urinary tract symptoms; I10 Essential (primary) hypertension
CPT/HCPCS: 36415; 80053; 80061; 81001; 83036; 84153; 84443; 85025; 85652; 86141

== ENCOUNTER → 2020-08-23 | Outpatient (CLI) | payer MEDICARE, MEDICAID, OTHER | END | disposition home or self-care (01) | LOC: XYW 10:59 | PROVIDERS: ATTEND Internal Medicine | DX: M47.812 Spondylosis without myelopathy or radiculopathy, cervical region (principal); M50.31 Other cervical disc degeneration, high cervical region; M48.02 Spinal stenosis, cervical region; M47.813 Spondylosis without myelopathy or radiculopathy, cervicothoracic region; G95.89 Other specified diseases of spinal cord | CPT/HCPCS: 72141 ==

== ENCOUNTER → 2020-09-16 | Outpatient (CLI) | payer MEDICARE, OTHER, MEDICAID ==
[2020-09-16 13:07] LABS: Urine Bacteria NONE SEEN /hpf (None Seen); Urine Blood Negative /uL (Negative); Urine Mucus FEW (None Seen); Urine Specific Gravity 1.017 (1.001-1.035); Urine WBC 3 /hpf (0 - 3)
== END | disposition home or self-care (01) ==
LOC: LAB 12:48
PROVIDERS: ATTEND Internal Medicine
DX: N40.0 Benign prostatic hyperplasia without lower urinary tract symptoms (principal)
CPT/HCPCS: 81001

== ENCOUNTER → 2020-09-22 | Outpatient (CLI) | payer MEDICARE, OTHER | END | disposition home or self-care (01) | LOC: XYW 08:53 | PROVIDERS: ATTEND Internal Medicine | DX: K86.2 Cyst of pancreas (principal); N28.1 Cyst of kidney, acquired; Z90.49 Acquired absence of other specified parts of digestive tract | CPT/HCPCS: 74181 ==

== ENCOUNTER → 2021-06-30 | Outpatient (CLI) | payer MEDICARE, OTHER ==
[2021-06-30 15:07] LABS: Basophils # (auto) 0.1 10 ^3/uL (0-0.2); Basophils % (auto) 0.7 % (0.0-2.0); Eosinophils # (auto) 0.2 10 ^3/uL (0-0.8); Eosinophils % (auto) 2.2 % (0.0-7.0); Hemoglobin 14.7 g/dL (13.5-17.5); Lymphocytes # (auto) 2.2 10 ^3/uL (0.4-5.4); Lymphocytes % (auto) 22.9 % (10.0-50.0); Mean Corpuscular Hemoglobin 30.9 pg (28.0-32.0); Mean Corpuscular Hgb Conc. 34.1 g/dL (32.0-36.0); Mean Corpuscular Volume 90.5 fL (80.0-100.0); Monocytes # (auto) 0.8 10 ^3/uL (0-1.3); Monocytes % (auto) 8.8 % (0.0-12.0); Neutrophils # (auto) 6.2 10 ^3/uL (1.6-8.6); Neutrophils % (auto) 65.4 % (37.0-80.0); Red Blood Cells 4.76 10^6/uL (4.5-5.90); Red Cell Distribution Width 12.8 % (11.8-14.3); White Blood Cell 9.4 10^3/uL (4.4-10.8)
== END | disposition home or self-care (01) ==
LOC: LAB 14:43
PROVIDERS: ATTEND Internal Medicine
DX: M25.511 Pain in right shoulder (principal)
CPT/HCPCS: 36415; 85025; 85652

== ENCOUNTER → 2021-08-29 | Outpatient (CLI) | payer MEDICARE, OTHER ==
[~2021-08-29] MED LIST changes: +BUPIVACAINE HCL 0.25% P/F 10 ML VIAL ONE; +IOHEXOL 300 MG/ML 100ML BOTTLE IJ ONE; +LIDOCAINE 2%HCL (LOCAL ANESTH.) INJ 10ml MDV ONE; +methylPREDNISolone ACETATE 80 MG/ML VL ONE
== END | disposition home or self-care (01) ==
LOC: XY 12:36
PROVIDERS: ATTEND Orthopaedic Surgery Sports Medicine
DX: M25.511 Pain in right shoulder (principal); Z87.891 Personal history of nicotine dependence; Z82.49 Family history of ischemic heart disease and other diseases of the circulatory system
CPT/HCPCS: 20611; 73020; 73501; J1040; J2001; J3490; Q9967; 76000

== ENCOUNTER → 2021-09-28 | Day surgery (SDC) | payer MEDICARE, OTHER ==
[2021-09-26 12:11] LABS: Basophils # (auto) 0 10 ^3/uL (0-0.2); Basophils % (auto) 0.6 % (0.0-2.0); Eosinophils # (auto) 0.2 10 ^3/uL (0-0.8); Eosinophils % (auto) 2.6 % (0.0-7.0); Hematocrit 43.1 % (41.0-53.0); Lymphocytes # (auto) 2.4 10 ^3/uL (0.4-5.4); Lymphocytes % (auto) 30.5 % (10.0-50.0); Mean Corpuscular Hemoglobin 31.4 pg (28.0-32.0); Mean Corpuscular Hgb Conc. 34.8 g/dL (32.0-36.0); Mean Corpuscular Volume 90.3 fL (80.0-100.0); Monocytes # (auto) 0.9 10 ^3/uL (0-1.3); Monocytes % (auto) 11.3 % (0.0-12.0); Neutrophils # (auto) 4.3 10 ^3/uL (1.6-8.6); Nucleated Red Blood Cells % 0.2 %; Red Blood Cells 4.78 10^6/uL (4.5-5.90); Red Cell Distribution Width 13.7 % (11.8-14.3); White Blood Cell 7.9 10^3/uL (4.4-10.8)
[2021-09-26 12:28] LABS: INR 0.98 (0.9-1.15); Partial Thromboplastin Time 28.6 sec (23.6-33.0)
[2021-09-26 12:43] LABS: Potassium 3.3 mmol/L (3.5-5.1)
[2021-09-26 12:49] LABS: Albumin 3.5 g/dL (3.4-5.0); BUN/Creatinine Ratio 15.6; Bilirubin, Total 0.7 mg/dL (0.2-1.0); Calcium 9.1 mg/dL (8.5-10.1); Total Protein 6.8 g/dL (6.4-8.2)
[~2021-09-28] VITALS: Ht 177.8 cm; Wt 67.6 kg
[~2021-09-28] MED LIST changes: -BUPIVACAINE HCL 0.25% P/F 10 ML VIAL ONE; +FINA5TAB4 PO; -IOHEXOL 300 MG/ML 100ML BOTTLE IJ ONE; -LIDOCAINE 2%HCL (LOCAL ANESTH.) INJ 10ml MDV ONE; +MELO1TAB56 PO; +POTA-220 PO; +TAMS0.4C36 PO; +diphenhdrAMINE HCL 50 MG/1 ML VL ONE; -methylPREDNISolone ACETATE 80 MG/ML VL ONE
[2021-09-28] MEDS: MIDAZOLAM HCL 5 MG/ML-1ML VIAL ONE ×3 (09:21→09:31)
[2021-09-28] MEDS: fentaNYL CITRATE 100 MCG/2 ML VL ONE ×3 (09:21→09:31)
[2021-09-28 11:30] VITALS: BP 127/79
== END | disposition home or self-care (01) ==
LOC: GI 08:29
PROVIDERS: ATTEND Internal Medicine Gastroenterology
DX: Z12.11 Encounter for screening for malignant neoplasm of colon (principal); K63.89 Other specified diseases of intestine; K64.8 Other hemorrhoids; Z86.010 Personal history of colon polyps; Z20.822 Contact with and (suspected) exposure to COVID-19; Z87.891 Personal history of nicotine dependence; Z80.0 Family history of malignant neoplasm of digestive organs; Z82.0 Family history of epilepsy and other diseases of the nervous system
CPT/HCPCS: 36415; 45378; 80053; 85025; 85610; 85730; J1200; J2250; J3010; J7030; U0003; 99153; G0500

== ENCOUNTER → 2021-10-24 | Outpatient (CLI) | payer MEDICARE, OTHER ==
[~2021-10-24] MED LIST changes: -diphenhdrAMINE HCL 50 MG/1 ML VL ONE
[2021-10-24 10:31] LABS: Urine Bacteria NONE SEEN /hpf (None Seen); Urine Blood Negative /uL (Negative); Urine Specific Gravity 1.005 (1.001-1.035); Urine WBC 2 /hpf (0 - 3)
== END | disposition home or self-care (01) ==
LOC: LAB 09:45
PROVIDERS: ATTEND Internal Medicine
DX: I10 Essential (primary) hypertension (principal); I51.7 Cardiomegaly; N40.1 Benign prostatic hyperplasia with lower urinary tract symptoms; R54 Age-related physical debility; R06.02 Shortness of breath; E78.5 Hyperlipidemia, unspecified; J44.1 Chronic obstructive pulmonary disease with (acute) exacerbation
CPT/HCPCS: 36415; 81001; 83880; 84478; 85652

== ENCOUNTER → 2021-10-24 | Outpatient (CLI) | payer MEDICARE, OTHER | END | disposition home or self-care (01) | LOC: XYW 08:51 | PROVIDERS: ATTEND Internal Medicine | DX: I08.2 Rheumatic disorders of both aortic and tricuspid valves (principal) | CPT/HCPCS: 93306 ==

== ENCOUNTER → 2022-03-01 | Outpatient (CLI) | payer MEDICARE, OTHER, MEDICAID ==
[~2022-03-01] VITALS: Ht 175.3 cm; Wt 67.6 kg
[~2022-03-01] MED LIST changes: +ADENOSINE 57 MG in GIVE UN-DILUTED 0 ML IV ONE
== END | disposition home or self-care (01) ==
LOC: XYW 08:49
PROVIDERS: ATTEND Internal Medicine
DX: Z01.810 Encounter for preprocedural cardiovascular examination (principal); I10 Essential (primary) hypertension; M17.11 Unilateral primary osteoarthritis, right knee; Z91.81 History of falling
CPT/HCPCS: 78452; 93017; A9500; J0153

== ENCOUNTER 2022-03-19 08:04 | Day surgery (SDC) | payer MEDICARE, OTHER, MEDICAID ==
[2022-03-15 12:10] LABS: Basophils # (auto) 0 10 ^3/uL (0-0.2); Basophils % (auto) 0.7 % (0.0-2.0); Eosinophils # (auto) 0.3 10 ^3/uL (0-0.8); Eosinophils % (auto) 4.2 % (0.0-7.0); Hematocrit 45.5 % (41.0-53.0); Hemoglobin 15.5 g/dL (13.5-17.5); Lymphocytes # (auto) 2.4 10 ^3/uL (0.4-5.4); Lymphocytes % (auto) 35.1 % (10.0-50.0); Mean Corpuscular Hemoglobin 30.9 pg (28.0-32.0); Mean Corpuscular Volume 90.8 fL (80.0-100.0); Monocytes # (auto) 0.8 10 ^3/uL (0-1.3); Monocytes % (auto) 11.4 % (0.0-12.0); Neutrophils # (auto) 3.3 10 ^3/uL (1.6-8.6); Neutrophils % (auto) 48.6 % (37.0-80.0); Nucleated Red Blood Cells % 0.1 %; Red Blood Cells 5.01 10^6/uL (4.5-5.90); Red Cell Distribution Width 13.2 % (11.8-14.3); White Blood Cell 6.8 10^3/uL (4.4-10.8)
[2022-03-15 12:26] LABS: INR 0.99 (0.9-1.15); Partial Thromboplastin Time 30.4 sec (24.6-33.4)
[2022-03-15 12:28] LABS: Calcium 9.2 mg/dL (8.5-10.1); Potassium 3.8 mmol/L (3.5-5.1)
[2022-03-15 12:31] LABS: BUN/Creatinine Ratio 12.4; Bilirubin, Total 0.7 mg/dL (0.2-1.0); Total Protein 7.1 g/dL (6.4-8.2)
[2022-03-19] VITALS (9 sets, daily range): BP systolic 101–135; BP diastolic 53–80
[~2022-03-19] VITALS: Ht 177.8 cm; Wt 66.7 kg
[~2022-03-19 08:04] MED LIST changes: +ACET-6 PO; -ADENOSINE 57 MG in GIVE UN-DILUTED 0 ML IV ONE
[2022-03-19] MEDS ORDERED: CHOL20007 PO (09:14)
[2022-03-19] MEDS ORDERED: IODIXANOL 320MG/ML 100ML BTL IV ONE (10:01)
[2022-03-19] MEDS ORDERED: LIDOCAINE 2%HCL (LOCAL ANESTH.) INJ 20ML MDV ONE (10:01)
[2022-03-19] MEDS ORDERED: ANGIOMAX 250 MG VIAL IV ONE (10:13)
[2022-03-19] MEDS ORDERED: VERAPAMIL 2.5MG/ML INJ 2ML VIAL IV ONE (10:14)
[2022-03-19] MEDS ORDERED: MIDAZOLAM HCL 2MG/2ML 2ml VIAL (1mg/ml) ONE (10:14)
[2022-03-19] MEDS ORDERED: fentaNYL CITRATE 100 MCG/2 ML VL ONE (10:14)
[2022-03-19] MEDS ORDERED: SODIUM CHL 0.9% 0 ML ONE (10:14)
== END 2022-03-19 13:12 | disposition home or self-care (01) ==
LOC: CATH 08:04
PROVIDERS: ATTEND Internal Medicine
DX: R94.39 Abnormal result of other cardiovascular function study (principal); I99.8 Other disorder of circulatory system; Z87.891 Personal history of nicotine dependence; Z82.0 Family history of epilepsy and other diseases of the nervous system; Z80.0 Family history of malignant neoplasm of digestive organs; Z20.822 Contact with and (suspected) exposure to COVID-19
CPT/HCPCS: 36415; 80053; 85025; 85610; 85730; 93458; C1769; C1887; C1894; J1644; J2250; J3010; Q9967; U0003; 99152

== ENCOUNTER 2022-05-28 06:10 | Inpatient (IN) | payer MEDICARE, OTHER ==
[2022-05-24 14:28] LABS: Urine Blood Negative /uL (Negative); Urine Specific Gravity 1.014 (1.001-1.035)
[2022-05-24 14:42] LABS: Albumin 3.9 g/dL (3.4-5.0); Calcium 9.4 mg/dL (8.5-10.1); Potassium 3.8 mmol/L (3.5-5.1)
[2022-05-24 14:44] LABS: BUN/Creatinine Ratio 15.6; Bilirubin, Total 0.4 mg/dL (0.2-1.0); INR 0.91 (0.9-1.15); Partial Thromboplastin Time 29.9 sec (24.6-33.4); Total Protein 7.2 g/dL (6.4-8.2)
[2022-05-24 14:59] LABS: Basophils # (auto) 0 10 ^3/uL (0-0.2); Basophils % (auto) 0.7 % (0.0-2.0); Eosinophils # (auto) 0.3 10 ^3/uL (0-0.8); Eosinophils % (auto) 3.5 % (0.0-7.0); Hematocrit 46.1 % (41.0-53.0); Hemoglobin 15.6 g/dL (13.5-17.5); Lymphocytes # (auto) 2.6 10 ^3/uL (0.4-5.4); Lymphocytes % (auto) 34.8 % (10.0-50.0); Mean Corpuscular Hemoglobin 31.1 pg (28.0-32.0); Mean Corpuscular Hgb Conc. 33.9 g/dL (32.0-36.0); Mean Corpuscular Volume 91.7 fL (80.0-100.0); Monocytes # (auto) 0.7 10 ^3/uL (0-1.3); Neutrophils # (auto) 3.8 10 ^3/uL (1.6-8.6); Nucleated Red Blood Cells % 0.2 %; Red Blood Cells 5.03 10^6/uL (4.5-5.90); White Blood Cell 7.4 10^3/uL (4.4-10.8)
[2022-05-28] VITALS (12 sets, daily range): BP systolic 79–114; BP diastolic 38–68
[~2022-05-28] VITALS: Ht 177.8 cm; Wt 72.7 kg
[~2022-05-28 06:10] MED LIST changes: +CHOL20007 PO; -MELO1TAB56 PO
[2022-05-28] MEDS ORDERED: CELECOXIB 100 MG CAP ONE (07:07)
[2022-05-28] MEDS ORDERED: PREGABALIN CAPSULE 75 MG CAP ONE (07:08)
[2022-05-28] MEDS ORDERED: ceFAZolin 1GM/50ML 100 ML IV ONE (07:08)
[2022-05-28] MEDS ORDERED: ACETAMINOPHEN IV 100 ML IV ONE (07:08)
[2022-05-28] MEDS ORDERED: KETOROLAC TROMETH 30 MG/ML 1ML VIAL ONE (08:09)
[2022-05-28] MEDS ORDERED: TRANEXAMIC ACID 0 ML ONE (08:12)
[2022-05-28] MEDS ORDERED: BUPIVACAINE W/ EPINEPH 0.25% INJ 50ML MDV ONE (08:12)
[2022-05-28] MEDS ORDERED: VANCOMYCIN HCL 1000 MG VL ONE (08:13)
[2022-05-28] MEDS ORDERED: TETRACAINE 1% INJ 2 ML VIAL IJ ONE (08:17)
[2022-05-28] MEDS ORDERED: MIDAZOLAM HCL 2MG/2ML 2ml VIAL (1mg/ml) ONE ×2 (08:17)
[2022-05-28] MEDS ORDERED: fentaNYL CITRATE 100 MCG/2 ML VL ONE (08:17)
[2022-05-28] MEDS ORDERED: MORPHINE SULF PF 5 MG/10 ML VIAL ONE (08:17)
[2022-05-28] MEDS ORDERED: DexAMETHasone SOD PHOS 10MG/1ML VIAL INJ ONE (08:17)
[2022-05-28] MEDS: TRANEXAMIC ACID 20 ML ONE ×2 (08:51→09:30)
[2022-05-28] MEDS ORDERED: MORPHINE SULFATE 4 MG/ML SYR/VIAL IV PRN (09:00)
[2022-05-28] MEDS ORDERED: NALBUPHINE HCL 10 MG/1ml INJECTION SUBCUT ONE (09:00)
[2022-05-28] MEDS ORDERED: ACETAMINOPHEN IV 1000 MG/100ML (10MG/ML) IV ONE (09:00)
[2022-05-28] MEDS ORDERED: NALOXONE HCL 0.4 MG/ML VIAL IV PRN (09:00)
[2022-05-28] MEDS ORDERED: ONDANSETRON HCL 4 MG/2 ML VIAL IV PRN ×3 (09:00→11:15)
[2022-05-28] MEDS ORDERED: DexAMETHasone SOD PHOS 10MG/1ML VIAL INJ IV PRN (09:00)
[2022-05-28] MEDS ORDERED: LABETALOL HCL 5 MG/ML 4ML SYRINGE IV PRN (09:00)
[2022-05-28] MEDS ORDERED: ePHEDrine SULFATE 50 MG/ML AMP IV PRN (09:00)
[2022-05-28] MEDS ORDERED: HYDROmorphone HCL 2 MG/ML VL/or syr IV PRN ×4 (09:00→14:30)
[2022-05-28] MEDS ORDERED: PREGABALIN CAPSULE 75 MG CAP PO ONE (09:00)
[2022-05-28] MEDS ORDERED: CELECOXIB 100 MG CAP PO ONE (09:00)
[2022-05-28] MEDS ORDERED: MIDAZOLAM HCL 2MG/2ML 2ml VIAL (1mg/ml) IV PRN (09:00)
[2022-05-28] MEDS ORDERED: PROPOFOL 10 MG/ML 20 ML IV ONE (09:56)
[2022-05-28] MEDS ORDERED: MORPHINE SULFATE INJ 2 MG/ml SYRG IV PRN (11:15)
[2022-05-28] MEDS: ceFAZolin 1GM/50ML 50 ML IV SCH ×3 (11:15→23:42)
[2022-05-28] MEDS: LACTATED RINGER'S 1,000 ML IV SCH ×2 (11:15→21:15)
[2022-05-28] MEDS ORDERED: NITROGLYCERIN 0.4 MG SL TAB SL PRN (11:15)
[2022-05-28] MEDS ORDERED: PHENYLEPHRINE HCL 10 MG/ML VL IV ONE (12:04)
[2022-05-28] MEDS: SODIUM CHLOR 0.9% PF (SALINE LOCK) 10ML VIAL/SYR IV SCH ×2 (14:00→21:46)
[2022-05-28] MEDS ORDERED: SODIUM CHLORIDE 0.9% 250 ML IV ONE ×4 (15:45→21:30)
[2022-05-28] MEDS ORDERED: AMLO-489 PO (16:47)
[2022-05-28] MEDS ORDERED: ALBUMIN 5% 250 ML IV ONE (17:30)
[2022-05-28] MEDS ORDERED: ALBUMIN 25% 100 ML IV ONE (18:00)
[2022-05-28] MEDS: levETIRAcetam 500 MG TAB PO SCH (21:46)
[2022-05-28] MEDS: DOCUSATE SOD 100 MG CAP PO SCH (21:46)
[2022-05-28] MEDS: POTASSIUM CHL 20 Meq TABLET PO SCH (21:46)
[2022-05-28 21:56] LABS: Hemoglobin 10.2 g/dL (13.5-17.5); Mean Corpuscular Hemoglobin 31.5 pg (28.0-32.0); Mean Corpuscular Hgb Conc. 34.1 g/dL (32.0-36.0); Mean Corpuscular Volume 92.4 fL (80.0-100.0); Red Blood Cells 3.24 10^6/uL (4.5-5.90); Red Cell Distribution Width 12.7 % (11.8-14.3); White Blood Cell 9.4 10^3/uL (4.4-10.8)
[2022-05-28 21:58] LABS: Band Neutrophils % (manual) 0; Basophils % (manual) 0 (0.0-2.0); Blast Cells 0; Metamyelocytes % 0; Myelocytes % 0; Promyelocytes % 0; Reactive Lymphocytes 0
[2022-05-28 23:05] LABS: Eosinophils % (manual) 1 (0-7); Lymphocytes % (manual) 8 (10.0-50.0); Monocytes % (manual) 8 (0-12)
[2022-05-29] VITALS (19 sets, daily range): BP systolic 83–126; BP diastolic 51–66
[2022-05-29] MEDS ORDERED: SODIUM CHLORIDE 0.9% 500 ML IV ONE (02:45)
[2022-05-29] MEDS: SODIUM CHLOR 0.9% PF (SALINE LOCK) 10ML VIAL/SYR IV SCH ×3 (06:00→22:03)
[2022-05-29 07:02] LABS: Albumin 2.9 g/dL (3.4-5.0); Calcium 8.3 mg/dL (8.5-10.1); Potassium 3.7 mmol/L (3.5-5.1)
[2022-05-29 07:06] LABS: BUN/Creatinine Ratio 31.1; Bilirubin, Total 0.3 mg/dL (0.2-1.0)
[2022-05-29 07:14] LABS: Basophils # (auto) 0 10 ^3/uL (0-0.2); Eosinophils # (auto) 0 10 ^3/uL (0-0.8); Hematocrit 26.2 % (41.0-53.0); Hemoglobin 8.9 g/dL (13.5-17.5); Lymphocytes # (auto) 0.6 10 ^3/uL (0.4-5.4); Lymphocytes % (auto) 6.7 % (10.0-50.0); Mean Corpuscular Hemoglobin 31.4 pg (28.0-32.0); Mean Corpuscular Volume 92.4 fL (80.0-100.0); Monocytes % (auto) 12.2 % (0.0-12.0); Neutrophils # (auto) 6.8 10 ^3/uL (1.6-8.6); Neutrophils % (auto) 81.1 % (37.0-80.0); Red Blood Cells 2.84 10^6/uL (4.5-5.90); Red Cell Distribution Width 12.9 % (11.8-14.3); White Blood Cell 8.4 10^3/uL (4.4-10.8)
[2022-05-29] MEDS: LACTATED RINGER'S 1,000 ML IV SCH ×2 (08:27→18:32)
[2022-05-29] MEDS: DOCUSATE SOD 100 MG CAP PO SCH ×2 (09:03→22:03)
[2022-05-29] MEDS: ENOXAPARIN SOD 40 MG/0.4 ML SYRINGE SC SCH (09:04)
[2022-05-29] MEDS: POTASSIUM CHL 20 Meq TABLET PO SCH ×2 (09:04→22:02)
[2022-05-29] MEDS: TAMSULOSIN HYDROCHLORIDE 0.4 MG CAP PO SCH (09:04)
[2022-05-29] MEDS: FINASTERIDE 5 MG TAB PO SCH (09:04)
[2022-05-29] MEDS: levETIRAcetam 500 MG TAB PO SCH ×2 (09:04→22:03)
[2022-05-29] MEDS ORDERED: MIDODRINE HCL 10 MG TAB PO ONE (09:15)
[2022-05-29] MEDS ORDERED: amLODIPine BESYLATE 5 MG TAB PO SCH (10:00)
[2022-05-29 14:34] LABS: Basophils # (auto) 0 10 ^3/uL (0-0.2); Eosinophils # (auto) 0 10 ^3/uL (0-0.8); Hematocrit 25.9 % (41.0-53.0); Hemoglobin 8.9 g/dL (13.5-17.5); Lymphocytes # (auto) 0.7 10 ^3/uL (0.4-5.4); Lymphocytes % (auto) 8.6 % (10.0-50.0); Mean Corpuscular Hemoglobin 31.8 pg (28.0-32.0); Mean Corpuscular Hgb Conc. 34.3 g/dL (32.0-36.0); Mean Corpuscular Volume 92.8 fL (80.0-100.0); Monocytes % (auto) 11.4 % (0.0-12.0); Neutrophils # (auto) 6.9 10 ^3/uL (1.6-8.6); Red Blood Cells 2.79 10^6/uL (4.5-5.90); Red Cell Distribution Width 12.9 % (11.8-14.3); White Blood Cell 8.6 10^3/uL (4.4-10.8)
[2022-05-30] MEDS: LACTATED RINGER'S 1,000 ML IV SCH ×2 (03:15→08:07)
[2022-05-30 05:00] VITALS: BP 126/69
[2022-05-30] MEDS: HYDROmorphone HCL 2 MG/ML VL/or syr IV PRN (05:03)
[2022-05-30] MEDS: SODIUM CHLOR 0.9% PF (SALINE LOCK) 10ML VIAL/SYR IV SCH ×3 (06:13→22:03)
[2022-05-30 06:32] LABS: Basophils # (auto) 0 10 ^3/uL (0-0.2); Basophils % (auto) 0.1 % (0.0-2.0); Eosinophils # (auto) 0 10 ^3/uL (0-0.8); Eosinophils % (auto) 0.4 % (0.0-7.0); Hematocrit 25.3 % (41.0-53.0); Hemoglobin 8.7 g/dL (13.5-17.5); Lymphocytes # (auto) 1.7 10 ^3/uL (0.4-5.4); Lymphocytes % (auto) 19.3 % (10.0-50.0); Mean Corpuscular Hemoglobin 31.6 pg (28.0-32.0); Mean Corpuscular Hgb Conc. 34.4 g/dL (32.0-36.0); Mean Corpuscular Volume 91.7 fL (80.0-100.0); Monocytes % (auto) 11.4 % (0.0-12.0); Neutrophils % (auto) 68.8 % (37.0-80.0); Nucleated Red Blood Cells % 0.1 %; Red Blood Cells 2.75 10^6/uL (4.5-5.90); Red Cell Distribution Width 12.9 % (11.8-14.3); White Blood Cell 8.7 10^3/uL (4.4-10.8)
[2022-05-30 06:55] LABS: Potassium 3.8 mmol/L (3.5-5.1)
[2022-05-30 07:02] LABS: BUN/Creatinine Ratio 30.4; Bilirubin, Total 0.3 mg/dL (0.2-1.0); Calcium 8.7 mg/dL (8.5-10.1); Total Protein 5.1 g/dL (6.4-8.2)
[2022-05-30 08:30] VITALS: BP 106/55
[2022-05-30] MEDS ORDERED: HALOPERIDOL LACTATE 5 MG/ML INJ VIAL IM ONE ×2 (09:45→12:45)
[2022-05-30] MEDS ORDERED: LORazepam 2MG/ML-1ML VIAL IV ONE (09:45)
[2022-05-30] MEDS: ENOXAPARIN SOD 40 MG/0.4 ML SYRINGE SC SCH (10:00)
[2022-05-30] MEDS: levETIRAcetam 500 MG TAB PO SCH ×2 (10:18→22:04)
[2022-05-30] MEDS: DOCUSATE SOD 100 MG CAP PO SCH ×2 (10:18→22:03)
[2022-05-30] MEDS: POTASSIUM CHL 20 Meq TABLET PO SCH (10:18)
[2022-05-30] MEDS: FINASTERIDE 5 MG TAB PO SCH (10:19)
[2022-05-30] MEDS: TAMSULOSIN HYDROCHLORIDE 0.4 MG CAP PO SCH (10:19)
[2022-05-30 12:30] VITALS: BP 123/79
[2022-05-30] MEDS ORDERED: THIAMINE 100mg/ml INJ (200mg/2ml VIAL) IV ONE (12:45)
[2022-05-30] MEDS ORDERED: LORazepam 2MG/ML-1ML VIAL IV PRN (12:45)
[2022-05-30] MEDS: D5W/SOD CHL 0.45%/KCL 20MEQ 1,000 ML IV SCH ×2 (13:43→23:40)
[2022-05-30 16:42] VITALS: BP 116/70
[2022-05-30 20:00] VITALS: BP 117/77
[2022-05-30 22:00] VITALS: BP 117/77
[2022-05-31 04:44] VITALS: BP 155/81
[2022-05-31] MEDS: SODIUM CHLOR 0.9% PF (SALINE LOCK) 10ML VIAL/SYR IV SCH ×3 (06:39→21:09)
[2022-05-31 06:43] LABS: Basophils # (auto) 0 10 ^3/uL (0-0.2); Basophils % (auto) 0.2 % (0.0-2.0); Eosinophils # (auto) 0 10 ^3/uL (0-0.8); Eosinophils % (auto) 0.4 % (0.0-7.0); Hematocrit 26.9 % (41.0-53.0); Hemoglobin 9.1 g/dL (13.5-17.5); Lymphocytes # (auto) 1.2 10 ^3/uL (0.4-5.4); Mean Corpuscular Hemoglobin 30.9 pg (28.0-32.0); Mean Corpuscular Hgb Conc. 33.9 g/dL (32.0-36.0); Mean Corpuscular Volume 91.3 fL (80.0-100.0); Monocytes # (auto) 1.1 10 ^3/uL (0-1.3); Monocytes % (auto) 12.7 % (0.0-12.0); Neutrophils # (auto) 6.4 10 ^3/uL (1.6-8.6); Neutrophils % (auto) 72.7 % (37.0-80.0); Red Blood Cells 2.95 10^6/uL (4.5-5.90); Red Cell Distribution Width 12.8 % (11.8-14.3); White Blood Cell 8.8 10^3/uL (4.4-10.8)
[2022-05-31 06:59] LABS: Calcium 8.5 mg/dL (8.5-10.1); Magnesium 2.1 mg/dL (1.6-2.6); Potassium 3.4 mmol/L (3.5-5.1)
[2022-05-31 07:03] LABS: BUN/Creatinine Ratio 17.2; Bilirubin, Total 0.8 mg/dL (0.2-1.0); Total Protein 5.4 g/dL (6.4-8.2)
[2022-05-31 09:00] VITALS: BP 101/62
[2022-05-31] MEDS: D5W/SOD CHL 0.45%/KCL 20MEQ 1,000 ML IV SCH ×2 (09:55→18:45)
[2022-05-31] MEDS: DOCUSATE SOD 100 MG CAP PO SCH ×2 (09:56→21:08)
[2022-05-31] MEDS: THIAMINE 100mg/ml INJ (200mg/2ml VIAL) IV SCH (09:56)
[2022-05-31] MEDS: TAMSULOSIN HYDROCHLORIDE 0.4 MG CAP PO SCH (09:56)
[2022-05-31] MEDS: HYDROcodone-ACET 5/325MG TAB PO PRN ×2 (09:56→21:08)
[2022-05-31] MEDS: levETIRAcetam 500 MG TAB PO SCH ×2 (09:56→21:08)
[2022-05-31] MEDS: FINASTERIDE 5 MG TAB PO SCH (09:56)
[2022-05-31] MEDS: ENOXAPARIN SOD 40 MG/0.4 ML SYRINGE SC SCH (09:57)
[2022-05-31 13:00] VITALS: BP 99/64
[2022-05-31] MEDS ORDERED: POTASSIUM EFFERVESENT TAB 25 MEQ PO ONE (13:15)
[2022-05-31 16:39] VITALS: BP 110/62
[2022-05-31 22:00] VITALS: BP 107/67
[2022-06-01] MEDS: D5W/SOD CHL 0.45%/KCL 20MEQ 1,000 ML IV SCH (04:47)
[2022-06-01 05:00] VITALS: BP 119/83
[2022-06-01] MEDS: SODIUM CHLOR 0.9% PF (SALINE LOCK) 10ML VIAL/SYR IV SCH ×3 (05:20→21:28)
[2022-06-01 05:59] LABS: Basophils # (auto) 0 10 ^3/uL (0-0.2); Basophils % (auto) 0.3 % (0.0-2.0); Eosinophils # (auto) 0.3 10 ^3/uL (0-0.8); Hematocrit 25.6 % (41.0-53.0); Hemoglobin 8.7 g/dL (13.5-17.5); Lymphocytes # (auto) 1.5 10 ^3/uL (0.4-5.4); Lymphocytes % (auto) 22.9 % (10.0-50.0); Mean Corpuscular Hemoglobin 31.1 pg (28.0-32.0); Mean Corpuscular Hgb Conc. 33.8 g/dL (32.0-36.0); Mean Corpuscular Volume 91.9 fL (80.0-100.0); Monocytes # (auto) 0.8 10 ^3/uL (0-1.3); Neutrophils # (auto) 3.9 10 ^3/uL (1.6-8.6); Neutrophils % (auto) 59.8 % (37.0-80.0); Red Blood Cells 2.78 10^6/uL (4.5-5.90); White Blood Cell 6.6 10^3/uL (4.4-10.8)
[2022-06-01 06:25] LABS: Calcium 8.5 mg/dL (8.5-10.1)
[2022-06-01 06:28] LABS: BUN/Creatinine Ratio 27.4
[2022-06-01] MEDS: HYDROcodone-ACET 5/325MG TAB PO PRN ×2 (06:38→17:49)
[2022-06-01 09:00] VITALS: BP 116/71
[2022-06-01] MEDS: DOCUSATE SOD 100 MG CAP PO SCH ×2 (09:51→21:28)
[2022-06-01] MEDS: THIAMINE 100mg/ml INJ (200mg/2ml VIAL) IV SCH (09:51)
[2022-06-01] MEDS: FINASTERIDE 5 MG TAB PO SCH (09:52)
[2022-06-01] MEDS: levETIRAcetam 500 MG TAB PO SCH ×2 (09:52→21:28)
[2022-06-01] MEDS: ENOXAPARIN SOD 40 MG/0.4 ML SYRINGE SC SCH (09:52)
[2022-06-01] MEDS: TAMSULOSIN HYDROCHLORIDE 0.4 MG CAP PO SCH (09:52)
[2022-06-01] MEDS: HYDROmorphone HCL 2 MG/ML VL/or syr IV PRN ×2 (09:53→21:43)
[2022-06-01 13:00] VITALS: BP 100/58
[2022-06-01] MEDS ORDERED: LORazepam 2MG/ML-1ML VIAL IV PRN (13:00)
[2022-06-01 17:00] VITALS: BP 111/66
[2022-06-01 22:00] VITALS: BP 115/54
[2022-06-02] MEDS: HYDROcodone-ACET 5/325MG TAB PO PRN ×2 (03:10→14:47)
[2022-06-02 05:00] VITALS: BP 106/65
[2022-06-02] MEDS: SODIUM CHLOR 0.9% PF (SALINE LOCK) 10ML VIAL/SYR IV SCH ×2 (05:38→14:46)
[2022-06-02 09:00] VITALS: BP 102/52
[2022-06-02] MEDS: THIAMINE 100mg/ml INJ (200mg/2ml VIAL) IV SCH (10:03)
[2022-06-02] MEDS: levETIRAcetam 500 MG TAB PO SCH (10:03)
[2022-06-02] MEDS: TAMSULOSIN HYDROCHLORIDE 0.4 MG CAP PO SCH (10:03)
[2022-06-02] MEDS: FINASTERIDE 5 MG TAB PO SCH (10:04)
[2022-06-02] MEDS: DOCUSATE SOD 100 MG CAP PO SCH (10:04)
[2022-06-02] MEDS: ENOXAPARIN SOD 40 MG/0.4 ML SYRINGE SC SCH (10:04)
[2022-06-02 13:00] VITALS: BP 107/51
[2022-06-02 13:58] VITALS: BP 107/51
[2022-06-02 17:00] VITALS: BP 97/63
== END 2022-06-02 18:47 | DRG 469 ==
LOC: SUR 06:10 → OVERFLOW 11:05 → WEST WING 15:15 → TELE-WESTW 18:52 → WEST WING 06-02 02:31
PROVIDERS: ADMIT Orthopaedic Surgery Adult Reconstructive Orthopaedic Surgery; ATTEND Internal Medicine
PROC: 8E0YXBZ Computer Assisted Procedure of Lower Extremity (ICD-10-PCS; 2022-05-28)
PROC: 0SR90J9 Replacement of Right Hip Joint with Synthetic Substitute, Cemented, Open Approach (ICD-10-PCS; principal; 2022-05-28 08:25)
DX: M16.11 Unilateral primary osteoarthritis, right hip (principal); G93.41 Metabolic encephalopathy; S72.001A Fracture of unspecified part of neck of right femur, initial encounter for closed fracture; I95.9 Hypotension, unspecified; N40.0 Benign prostatic hyperplasia without lower urinary tract symptoms; I10 Essential (primary) hypertension; H91.90 Unspecified hearing loss, unspecified ear; F17.290 Nicotine dependence, other tobacco product, uncomplicated; D64.9 Anemia, unspecified; Z20.822 Contact with and (suspected) exposure to COVID-19
CPT/HCPCS: 36415; 71045; 72170; 80048; 80053; 81001; 83735; 85007; 85025; 85027; 85610; 85730; 86850; 86900; 86901; 87426; 97110; 97116; 97163; 97530; G0378; J0131; J0690; J1100; J1885; J2250; J2405; J2704; P9047

== ENCOUNTER 2022-06-03 14:25 | Inpatient (IN) | payer MEDICARE, OTHER ==
[~2022-06-03] VITALS: Ht 175.3 cm; Wt 70.1 kg
[2022-06-03 15:48] LABS: Basophils # (auto) 0 10 ^3/uL (0-0.2); Basophils % (auto) 0.3 % (0.0-2.0); Eosinophils # (auto) 0.2 10 ^3/uL (0-0.8); Eosinophils % (auto) 2.9 % (0.0-7.0); Hematocrit 26.8 % (41.0-53.0); Hemoglobin 9.2 g/dL (13.5-17.5); Lymphocytes # (auto) 1.2 10 ^3/uL (0.4-5.4); Lymphocytes % (auto) 14.7 % (10.0-50.0); Mean Corpuscular Hemoglobin 31.3 pg (28.0-32.0); Mean Corpuscular Hgb Conc. 34.2 g/dL (32.0-36.0); Mean Corpuscular Volume 91.3 fL (80.0-100.0); Monocytes # (auto) 1.1 10 ^3/uL (0-1.3); Monocytes % (auto) 13.7 % (0.0-12.0); Neutrophils # (auto) 5.6 10 ^3/uL (1.6-8.6); Neutrophils % (auto) 68.4 % (37.0-80.0); Red Blood Cells 2.94 10^6/uL (4.5-5.90); Red Cell Distribution Width 12.9 % (11.8-14.3); White Blood Cell 8.3 10^3/uL (4.4-10.8)
[2022-06-03] MEDS ORDERED: SODIUM CHLORIDE 0.9% 1,000 ML IV ONE (16:00)
[2022-06-03] MEDS ORDERED: SODIUM CHLORIDE 0.9% 500 ML IVB ONE (16:00)
[2022-06-03 16:07] LABS: Albumin 3.4 g/dL (3.4-5.0); Anion Gap 10 (5-15); Blood Alcohol < 3.0 mg/dL (0-5); Blood Urea Nitrogen 38 mg/dL (7-18); Calcium 8.9 mg/dL (8.5-10.1); Carbon Dioxide 23 mmol/L (21-32); Chloride 108 mmol/L (98-107); Glucose 99 mg/dL (74-106); Potassium 3.9 mmol/L (3.5-5.1); Sodium 141 mmol/L (136-145)
[2022-06-03 16:10] LABS: Alanine Aminotransferase 47 U/L (16-61); Alkaline Phosphatase 26 U/L (45-117); Aspartate Aminotransferase 56 U/L (15-37); BUN/Creatinine Ratio 33.6; GFR African American 81 mL/min; GFR Non-African American 67 mL/min; Total Protein 6.2 g/dL (6.4-8.2)
[2022-06-03 17:31] LABS: Blood Alcohol < 3.0 mg/dL (0-5); Magnesium 2.2 mg/dL (1.6-2.6)
[2022-06-04] MEDS ORDERED: OLANZapine 5 MG TAB PO ONE (10:00)
[2022-06-04] MEDS ORDERED: LORazepam 2MG/ML-1ML VIAL IM ONE (10:00)
[2022-06-04 13:18] LABS: Urine Specific Gravity 1.019 (1.001-1.035)
[2022-06-04 13:19] LABS: Urine Blood Negative /uL (Negative)
[2022-06-04] MEDS ORDERED: MORPHINE SULFATE INJ 2 MG/ml SYRG IV PRN (16:00)
[2022-06-04] MEDS ORDERED: ACETAMINOPHEN 325 MG TAB PO PRN (16:00)
[2022-06-04] MEDS ORDERED: NITROGLYCERIN 0.4 MG SL TAB SL PRN (16:00)
[2022-06-04] MEDS ORDERED: ONDANSETRON HCL 4 MG/2 ML VIAL IV PRN (16:00)
[2022-06-04] MEDS ORDERED: DOCUSATE SOD 100 MG CAP PO PRN (16:00)
[2022-06-04] MEDS: SODIUM CHLORIDE 0.9% 1,000 ML IV SCH (16:00)
[2022-06-04] MEDS ORDERED: HALOPERIDOL LACTATE 5 MG/ML INJ VIAL IM ONE (20:30)
[2022-06-04] MEDS ORDERED: LORazepam 2MG/ML-1ML VIAL IV PRN ×2 (21:45)
[2022-06-04] MEDS ORDERED: HALOPERIDOL LACTATE 5 MG/ML INJ VIAL IM PRN (21:45)
[2022-06-04] MEDS: levETIRAcetam 500 MG TAB PO SCH (22:07)
[2022-06-05 00:05] LABS: Free T4 (Free Thyroxine) 0.94 ng/dL (0.89-1.76)
[2022-06-05 00:06] LABS: Folate (Folic Acid) > 24.00 ng/mL (5.38-24)
[2022-06-05 04:25] VITALS: BP 96/66
[2022-06-05 08:05] VITALS: BP 111/55
[2022-06-05 08:12] LABS: Basophils # (auto) 0.1 10 ^3/uL (0-0.2); Basophils % (auto) 0.7 % (0.0-2.0); Eosinophils # (auto) 0.3 10 ^3/uL (0-0.8); Hematocrit 27.1 % (41.0-53.0); Hemoglobin 9.3 g/dL (13.5-17.5); Lymphocytes # (auto) 1.4 10 ^3/uL (0.4-5.4); Lymphocytes % (auto) 16.7 % (10.0-50.0); Mean Corpuscular Hemoglobin 31.5 pg (28.0-32.0); Mean Corpuscular Hgb Conc. 34.2 g/dL (32.0-36.0); Monocytes % (auto) 11.2 % (0.0-12.0); Neutrophils # (auto) 5.9 10 ^3/uL (1.6-8.6); Neutrophils % (auto) 68.4 % (37.0-80.0); Nucleated Red Blood Cells % 0.1 %; Red Blood Cells 2.95 10^6/uL (4.5-5.90); Red Cell Distribution Width 12.7 % (11.8-14.3); White Blood Cell 8.7 10^3/uL (4.4-10.8)
[2022-06-05 08:27] LABS: Albumin 2.9 g/dL (3.4-5.0); Calcium 9.1 mg/dL (8.5-10.1); Potassium 3.7 mmol/L (3.5-5.1)
[2022-06-05 08:31] LABS: BUN/Creatinine Ratio 37.5; Bilirubin, Total 0.8 mg/dL (0.2-1.0); Total Protein 6.3 g/dL (6.4-8.2)
[2022-06-05 09:00] VITALS: BP 111/55
[2022-06-05] MEDS: PANTOPRAZOLE 40 MG/10 ML VIAL INJ IV SCH (10:00)
[2022-06-05] MEDS ORDERED: amLODIPine BESYLATE 5 MG TAB PO SCH (10:00)
[2022-06-05] MEDS: TAMSULOSIN HYDROCHLORIDE 0.4 MG CAP PO SCH (10:00)
[2022-06-05] MEDS: FINASTERIDE 5 MG TAB PO SCH (10:00)
[2022-06-05] MEDS: levETIRAcetam 500 MG TAB PO SCH ×2 (10:00→22:16)
[2022-06-05] MEDS: SODIUM CHLORIDE 0.9% 1,000 ML IV SCH (12:51)
[2022-06-05] MEDS ORDERED: CYANOCOBALAMIN 500 MCG TAB PO ONE (13:45)
[2022-06-05] MEDS: HYDROcodone-ACET 5/325MG TAB PO PRN (16:28)
[2022-06-05] MEDS: Ensure HIGH Protein Chocolate 8oz Bottle PO SCH (18:11)
[2022-06-05 20:00] VITALS: BP 99/53
[2022-06-05] MEDS ORDERED: CYANOCOBALAMIN (B-12) 1000 MCG/1 ML VIAL IM ONE (21:30)
[2022-06-05 22:00] VITALS: BP 99/53
[2022-06-06] MEDS: HYDROcodone-ACET 5/325MG TAB PO PRN ×4 (00:02→19:08)
[2022-06-06 05:00] VITALS: BP 105/70
[2022-06-06 08:15] VITALS: BP 93/50
[2022-06-06 09:00] VITALS: BP 93/50
[2022-06-06] MEDS ORDERED: CYANOCOBALAMIN 500 MCG TAB PO SCH (10:00)
[2022-06-06] MEDS: PANTOPRAZOLE 40 MG/10 ML VIAL INJ IV SCH (10:04)
[2022-06-06] MEDS: FINASTERIDE 5 MG TAB PO SCH (10:05)
[2022-06-06] MEDS: CYANOCOBALAMIN 500 MCG TAB PO SCH (10:05)
[2022-06-06] MEDS: levETIRAcetam 500 MG TAB PO SCH ×2 (10:05→22:31)
[2022-06-06] MEDS: TAMSULOSIN HYDROCHLORIDE 0.4 MG CAP PO SCH (10:05)
[2022-06-06] MEDS: Ensure HIGH Protein Chocolate 8oz Bottle PO SCH ×3 (10:15→18:21)
[2022-06-06] MEDS ORDERED: ASPirin 81 mg TAB PO ONE (11:45)
[2022-06-06 17:00] VITALS: BP 92/55
[2022-06-06 22:00] VITALS: BP 105/43
[2022-06-06] MEDS ORDERED: ATORVASTATIN 20 MG TAB PO SCH (22:00)
[2022-06-07] MEDS: HYDROcodone-ACET 5/325MG TAB PO PRN (03:59)
[2022-06-07 05:00] VITALS: BP 92/56
[2022-06-07 05:39] LABS: Eosinophils # (auto) 0.4 10 ^3/uL (0-0.8); Lymphocytes # (auto) 2.1 10 ^3/uL (0.4-5.4); Monocytes # (auto) 0.7 10 ^3/uL (0-1.3)
[2022-06-07 05:41] LABS: Basophils # (auto) 0.1 10 ^3/uL (0-0.2); Basophils % (auto) 0.8 % (0.0-2.0); Eosinophils % (auto) 4.9 % (0.0-7.0); Hematocrit 23.3 % (41.0-53.0); Lymphocytes % (auto) 26.7 % (10.0-50.0); Mean Corpuscular Hemoglobin 30.9 pg (28.0-32.0); Mean Corpuscular Hgb Conc. 34.4 g/dL (32.0-36.0); Mean Corpuscular Volume 89.8 fL (80.0-100.0); Monocytes % (auto) 9.1 % (0.0-12.0); Neutrophils # (auto) 4.5 10 ^3/uL (1.6-8.6); Neutrophils % (auto) 58.5 % (37.0-80.0); Nucleated Red Blood Cells % 0.1 %; Red Blood Cells 2.59 10^6/uL (4.5-5.90); Red Cell Distribution Width 12.6 % (11.8-14.3); White Blood Cell 7.8 10^3/uL (4.4-10.8)
[2022-06-07 05:51] LABS: Potassium 3.4 mmol/L (3.5-5.1)
[2022-06-07 05:56] LABS: BUN/Creatinine Ratio 29.6; Calcium 8.5 mg/dL (8.5-10.1)
[2022-06-07 08:00] VITALS: BP_SYST 111; BP_SYST 99; BP_DIAS 55; BP_DIAS 58
[2022-06-07] MEDS: Ensure HIGH Protein Chocolate 8oz Bottle PO SCH ×3 (08:29→18:00)
[2022-06-07] MEDS ORDERED: ASPirin 81 mg TAB PO SCH (10:00)
[2022-06-07] MEDS ORDERED: PANTOPRAZOLE 40 MG TAB PO SCH (10:00)
[2022-06-07] MEDS: CYANOCOBALAMIN 500 MCG TAB PO SCH (10:52)
[2022-06-07] MEDS: levETIRAcetam 500 MG TAB PO SCH (10:52)
[2022-06-07] MEDS: FINASTERIDE 5 MG TAB PO SCH (10:52)
[2022-06-07] MEDS: TAMSULOSIN HYDROCHLORIDE 0.4 MG CAP PO SCH (10:52)
[2022-06-07] MEDS ORDERED: POTASSIUM CHL 20 Meq TABLET PO ONE (11:30)
[2022-06-07] MEDS ORDERED: FERROUS SULFATE 325mg EC TAB PO ONE (11:30)
[2022-06-07 12:00] VITALS: BP 104/51
[2022-06-07] MEDS ORDERED: PANT40T PO (14:21)
[2022-06-07] MEDS ORDERED: ASPI-325 PO (14:21)
[2022-06-07] MEDS ORDERED: FER325T PO (14:21)
[2022-06-07] MEDS ORDERED: CYAN500T3 PO (14:21)
[2022-06-07] MEDS ORDERED: ATOR20TA50 PO (14:21)
[2022-06-07] MEDS ORDERED: FERROUS SULFATE 325mg EC TAB PO SCH (18:00)
== END 2022-06-07 18:33 | disposition home health service (06) | DRG 64 ==
LOC: EDBD 14:25 → ER 14:25 → TELE 06-04 16:03 → TELE-WESTW 06-05 02:55
PROVIDERS: ADMIT Nurse Practitioner Family; ATTEND Internal Medicine
DX: I63.9 Cerebral infarction, unspecified (principal); G92.8 Other toxic encephalopathy; E44.0 Moderate protein-calorie malnutrition; F03.92 Unspecified dementia, unspecified severity, with psychotic disturbance; G40.909 Epilepsy, unspecified, not intractable, without status epilepticus; N40.0 Benign prostatic hyperplasia without lower urinary tract symptoms; D64.9 Anemia, unspecified; F03.90 Unspecified dementia, unspecified severity, without behavioral disturbance, psychotic disturbance, mood disturbance, and anxiety; Z20.822 Contact with and (suspected) exposure to COVID-19; F17.200 Nicotine dependence, unspecified, uncomplicated; I10 Essential (primary) hypertension; Z96.641 Presence of right artificial hip joint; Z79.899 Other long term (current) drug therapy; Z68.22 Body mass index [BMI] 22.0-22.9, adult; Z80.0 Family history of malignant neoplasm of digestive organs; Z82.0 Family history of epilepsy and other diseases of the nervous system
CPT/HCPCS: 36415; 70450; 70551; 71045; 72170; 80048; 80053; 80320; 81003; 82607; 82746; 83735; 84439; 84443; 84484; 85025; 87426; 92610; 93005; 93306; 93886; 95819; 96372; 97110; 97116; 97163; 97530; C9113; G0378

== ENCOUNTER → 2022-06-26 | Outpatient (CLI) | payer MEDICARE, OTHER ==
[~2022-06-26] MED LIST changes: +ASPI-325 PO; +ATOR20TA50 PO; +CYAN500T3 PO; +FER325T PO; +PANT40T PO
[2022-06-26 09:12] LABS: Basophils # (auto) 0 10 ^3/uL (0-0.2); Basophils % (auto) 0.6 % (0.0-2.0); Eosinophils # (auto) 0.5 10 ^3/uL (0-0.8); Eosinophils % (auto) 6.4 % (0.0-7.0); Hematocrit 34.3 % (41.0-53.0); Hemoglobin 11.1 g/dL (13.5-17.5); Lymphocytes # (auto) 2.2 10 ^3/uL (0.4-5.4); Lymphocytes % (auto) 30.3 % (10.0-50.0); Mean Corpuscular Hemoglobin 28.3 pg (28.0-32.0); Mean Corpuscular Hgb Conc. 32.5 g/dL (32.0-36.0); Mean Corpuscular Volume 87.3 fL (80.0-100.0); Monocytes # (auto) 0.8 10 ^3/uL (0-1.3); Monocytes % (auto) 10.9 % (0.0-12.0); Neutrophils # (auto) 3.7 10 ^3/uL (1.6-8.6); Neutrophils % (auto) 51.8 % (37.0-80.0); Nucleated Red Blood Cells % 0.1 %; Red Blood Cells 3.93 10^6/uL (4.5-5.90); Red Cell Distribution Width 14.5 % (11.8-14.3); White Blood Cell 7.1 10^3/uL (4.4-10.8)
[2022-06-26 10:27] LABS: Albumin 3.5 g/dL (3.4-5.0); BUN/Creatinine Ratio 13.8; Bilirubin, Total 0.6 mg/dL (0.2-1.0); Calcium 9.3 mg/dL (8.5-10.1); Total Protein 6.9 g/dL (6.4-8.2)
== END | disposition home or self-care (01) ==
LOC: LAB 08:37
PROVIDERS: ATTEND Internal Medicine
DX: I10 Essential (primary) hypertension (principal)
CPT/HCPCS: 36415; 80053; 85025

== ENCOUNTER → 2022-08-20 | Outpatient (CLI) | payer MEDICARE, MEDICAID ==
[2022-08-20 14:27] LABS: Basophils # (auto) 0 10 ^3/uL (0-0.2); Basophils % (auto) 0.6 % (0.0-2.0); Eosinophils # (auto) 0.2 10 ^3/uL (0-0.8); Eosinophils % (auto) 2.6 % (0.0-7.0); Hematocrit 40.7 % (41.0-53.0); Hemoglobin 13.7 g/dL (13.5-17.5); Lymphocytes % (auto) 26.8 % (10.0-50.0); Mean Corpuscular Hemoglobin 27.8 pg (28.0-32.0); Mean Corpuscular Hgb Conc. 33.7 g/dL (32.0-36.0); Mean Corpuscular Volume 82.6 fL (80.0-100.0); Monocytes # (auto) 0.7 10 ^3/uL (0-1.3); Monocytes % (auto) 9.5 % (0.0-12.0); Neutrophils # (auto) 4.4 10 ^3/uL (1.6-8.6); Neutrophils % (auto) 60.5 % (37.0-80.0); Nucleated Red Blood Cells % 0.2 %; Red Blood Cells 4.93 10^6/uL (4.5-5.90); Red Cell Distribution Width 16.5 % (11.8-14.3); White Blood Cell 7.3 10^3/uL (4.4-10.8)
== END | disposition home or self-care (01) ==
LOC: LAB 14:11
PROVIDERS: ATTEND Internal Medicine
DX: I10 Essential (primary) hypertension (principal); I63.9 Cerebral infarction, unspecified; D64.9 Anemia, unspecified; M16.11 Unilateral primary osteoarthritis, right hip
CPT/HCPCS: 36415; 85025

== ENCOUNTER → 2023-04-18 | Outpatient (CLI) | payer MEDICARE, OTHER ==
[~2023-04-18] MED LIST changes: -AMLO-489 PO; +AMLO1TAB22 PO; -LEVE500T32 PO; +LEVE500T40 PO
[2023-04-18 12:42] LABS: Erythrocyte Sedimentation Rate 1 mm/hr (0-20)
[2023-04-18 13:45] LABS: Triglycerides 95 mg/dL (< 150)
[2023-04-18 13:46] LABS: LDL Cholesterol 27 mg/dL (< 100)
[2023-04-18 13:47] LABS: HDL Cholesterol 42 mg/dL (40-59)
[2023-04-18 13:48] LABS: Cholesterol 86 mg/dL (< 200)
== END | disposition home or self-care (01) ==
LOC: LAB 11:53
PROVIDERS: ATTEND Internal Medicine
DX: E78.5 Hyperlipidemia, unspecified (principal); M48.061 Spinal stenosis, lumbar region without neurogenic claudication
CPT/HCPCS: 36415; 80061; 85652

== ENCOUNTER → 2024-01-06 | Outpatient (CLI) | payer MEDICARE, OTHER ==
[2024-01-06 12:06] LABS: Urine Bacteria MOD /hpf (None Seen); Urine Blood Negative /uL (Negative); Urine Clarity Turbid (Clear); Urine Color Yellow (Yellow); Urine Mucus FEW (None Seen); Urine Protein, UAD TRACE (Negative); Urine Specific Gravity 1.028 (1.001-1.035); Urine Urobilinogen Normal (Negative); Urine WBC 42 /hpf (0 - 3); Urine pH 5.5 (5.0-9.0)
[2024-01-06 12:17] LABS: Triglycerides 86 mg/dL (< 150)
[2024-01-06 12:18] LABS: Cholesterol 83 mg/dL (< 200); LDL Cholesterol 27 mg/dL (< 100)
[2024-01-06 12:19] LABS: HDL Cholesterol 42 mg/dL (40-59)
== END | disposition home or self-care (01) ==
LOC: LAB 11:22
PROVIDERS: ATTEND Internal Medicine
DX: M15.9 Polyosteoarthritis, unspecified (principal); R64 Cachexia; Z00.00 Encounter for general adult medical examination without abnormal findings; Z79.899 Other long term (current) drug therapy
CPT/HCPCS: 36415; 80061; 81001

== ENCOUNTER → 2024-03-09 | Outpatient (CLI) | payer MEDICARE, OTHER ==
[~2024-03-09] MED LIST changes: +BUPIVACAINE HCL 0.25% P/F 10 ML VIAL ONE; +IOHEXOL 300 MG/ML 100ML BOTTLE IJ ONE; +LIDOCAINE 2%HCL (LOCAL ANESTH.) INJ 10ml MDV ONE; -TAMS0.4C36 PO; +TAMS0.4C39 PO; +methylPREDNISolone ACETATE 80 MG/ML VL ONE
== END | disposition home or self-care (01) ==
LOC: XYW 09:00
PROVIDERS: ATTEND Orthopaedic Surgery Adult Reconstructive Orthopaedic Surgery
DX: M25.511 Pain in right shoulder (principal); F17.210 Nicotine dependence, cigarettes, uncomplicated; Z80.0 Family history of malignant neoplasm of digestive organs; Z81.8 Family history of other mental and behavioral disorders; Z82.0 Family history of epilepsy and other diseases of the nervous system
CPT/HCPCS: 20610; 77002; J1010; J2001; J3490; Q9967; 73020

== ENCOUNTER → 2024-04-14 | Outpatient (CLI) | payer MEDICARE, OTHER ==
[~2024-04-14] MED LIST changes: -BUPIVACAINE HCL 0.25% P/F 10 ML VIAL ONE; -IOHEXOL 300 MG/ML 100ML BOTTLE IJ ONE; -LIDOCAINE 2%HCL (LOCAL ANESTH.) INJ 10ml MDV ONE; -methylPREDNISolone ACETATE 80 MG/ML VL ONE
[2024-04-14 15:18] LABS: Basophils # (auto) 0 10 ^3/uL (0-0.2); Basophils % (auto) 0.7 % (0.0-2.0); Eosinophils # (auto) 0.1 10 ^3/uL (0-0.8); Eosinophils % (auto) 1.8 % (0.0-7.0); Hematocrit 45.7 % (41.0-53.0); Lymphocytes # (auto) 1.4 10 ^3/uL (0.4-5.4); Lymphocytes % (auto) 22.9 % (10.0-50.0); Mean Corpuscular Hemoglobin 32.7 pg (28.0-32.0); Mean Corpuscular Volume 93.3 fL (80.0-100.0); Monocytes # (auto) 0.6 10 ^3/uL (0-1.3); Monocytes % (auto) 9.2 % (0.0-12.0); Neutrophils # (auto) 4.1 10 ^3/uL (1.6-8.6); Neutrophils % (auto) 65.4 % (37.0-80.0); Nucleated Red Blood Cells % 0.2 %; Platelet Count (auto) 202 10^3/uL (140-450); Red Cell Distribution Width 14.1 % (11.8-14.3); White Blood Cell 6.3 10^3/uL (4.4-10.8)
[2024-04-14 15:31] LABS: Albumin 4.2 g/dL (3.2-4.8); Alkaline Phosphatase 39 U/L (46-116); Anion Gap 5 (5-15); Aspartate Aminotransferase 14 U/L (13-40); BUN/Creatinine Ratio 22.1 (10.0-20.0); Blood Urea Nitrogen 17 mg/dL (9-23); Calcium 10.2 mg/dL (8.7-10.4); Carbon Dioxide 23 mmol/L (20-31); Chloride 112 mmol/L (98-107); Glucose 82 mg/dL (74-106); Potassium 4.1 mmol/L (3.5-5.1); Sodium 140 mmol/L (136-145)
[2024-04-14 15:32] LABS: Bilirubin, Total 0.7 mg/dL (0.2-1.0); Total Protein 6.9 g/dL (5.7-8.2)
[2024-04-14 15:34] LABS: Alanine Aminotransferase < 9 U/L (7-40)
== END | disposition home or self-care (01) ==
LOC: LAB 14:44
PROVIDERS: ATTEND Internal Medicine
DX: N39.0 Urinary tract infection, site not specified (principal); F03.92 Unspecified dementia, unspecified severity, with psychotic disturbance; R64 Cachexia
CPT/HCPCS: 36415; 80053; 85025

== ENCOUNTER → 2024-06-10 | Outpatient (CLI) | payer MEDICARE, OTHER ==
[2024-06-10 11:24] LABS: Urine Bacteria None Seen /hpf (None Seen)
[2024-06-10 11:33] LABS: Basophils # (auto) 0 10 ^3/uL (0-0.2); Basophils % (auto) 0.8 % (0.0-2.0); Eosinophils # (auto) 0.2 10 ^3/uL (0-0.8); Hematocrit 47.3 % (41.0-53.0); Lymphocytes # (auto) 1.6 10 ^3/uL (0.4-5.4); Lymphocytes % (auto) 30.9 % (10.0-50.0); Mean Corpuscular Hgb Conc. 33.7 g/dL (32.0-36.0); Mean Corpuscular Volume 94.7 fL (80.0-100.0); Monocytes # (auto) 0.5 10 ^3/uL (0-1.3); Monocytes % (auto) 9.1 % (0.0-12.0); Neutrophils # (auto) 2.9 10 ^3/uL (1.6-8.6); Neutrophils % (auto) 55.2 % (37.0-80.0); Nucleated Red Blood Cells % 0.1 %; Platelet Count (auto) 182 10^3/uL (140-450); Red Blood Cells 4.99 10^6/uL (4.5-5.90); Red Cell Distribution Width 13.4 % (11.8-14.3); White Blood Cell 5.3 10^3/uL (4.4-10.8)
[2024-06-10 11:47] LABS: Urine Blood Negative /uL (Negative); Urine Clarity Clear (Clear); Urine Color Yellow (Yellow); Urine Mucus FEW (None Seen); Urine Protein, UAD TRACE (Negative); Urine Specific Gravity 1.017 (1.001-1.035); Urine Urobilinogen 2 mg/dL (Negative); Urine WBC 2 /hpf (0 - 3)
[2024-06-10 11:52] LABS: Albumin 4.2 g/dL (3.2-4.8); Anion Gap 6 (5-15); Aspartate Aminotransferase 19 U/L (13-40); BUN/Creatinine Ratio 15.4 (10.0-20.0); Blood Urea Nitrogen 12 mg/dL (9-23); Calcium 10.2 mg/dL (8.7-10.4); Carbon Dioxide 25 mmol/L (20-31); Cholesterol 114 mg/dL (< 200); Glucose 77 mg/dL (74-106); HDL Cholesterol 50 mg/dL (40-59); LDL Cholesterol 47 mg/dL (< 100); Potassium 3.8 mmol/L (3.5-5.1); Sodium 143 mmol/L (136-145); Triglycerides 107 mg/dL (< 150)
[2024-06-10 11:53] LABS: Bilirubin, Total 0.7 mg/dL (0.2-1.0); Total Protein 6.8 g/dL (5.7-8.2)
[2024-06-10 11:59] LABS: Alanine Aminotransferase 9 U/L (7-40); Alkaline Phosphatase 41 U/L (46-116); Chloride 112 mmol/L (98-107)
== END | disposition home or self-care (01) ==
LOC: LAB 11:11
PROVIDERS: ATTEND Internal Medicine
DX: E53.8 Deficiency of other specified B group vitamins (principal); Z79.899 Other long term (current) drug therapy
CPT/HCPCS: 36415; 80053; 80061; 81001; 85025

== ENCOUNTER → 2024-09-18 | Outpatient (CLI) | payer MEDICARE, OTHER, MEDICAID ==
[2024-09-18 15:34] LABS: Erythrocyte Sedimentation Rate 5 mm/hr (0-20)
== END | disposition home or self-care (01) ==
LOC: LAB 14:11
PROVIDERS: ATTEND Internal Medicine
DX: G89.4 Chronic pain syndrome (principal); M19.90 Unspecified osteoarthritis, unspecified site; Z79.899 Other long term (current) drug therapy
CPT/HCPCS: 36415; 82306; 82607; 84443; 85652; 86141

== ENCOUNTER 2024-12-06 18:36 | Inpatient (IN) | payer MEDICARE, OTHER ==
[~2024-12-06] VITALS: Ht 175.3 cm; Wt 64.4 kg
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
[2024-12-06 19:30] LABS: Basophils # (auto) 0 10 ^3/uL (0-0.2); Basophils % (auto) 0.7 % (0.0-2.0); Eosinophils # (auto) 0.2 10 ^3/uL (0-0.8); Eosinophils % (auto) 4.2 % (0.0-7.0); Hemoglobin 14.3 g/dL (13.5-17.5); Lymphocytes # (auto) 1.4 10 ^3/uL (0.4-5.4); Mean Corpuscular Hgb Conc. 34.1 g/dL (32.0-36.0); Mean Corpuscular Volume 90.7 fL (80.0-100.0); Monocytes # (auto) 0.4 10 ^3/uL (0-1.3); Monocytes % (auto) 8.3 % (0.0-12.0); Neutrophils # (auto) 3.1 10 ^3/uL (1.6-8.6); Neutrophils % (auto) 59.8 % (37.0-80.0); Nucleated Red Blood Cells % 0.2 %; Platelet Count (auto) 184 10^3/uL (140-450); Red Blood Cells 4.63 10^6/uL (4.5-5.90); White Blood Cell 5.1 10^3/uL (4.4-10.8)
[2024-12-06 19:38] LABS: Alanine Aminotransferase 12 U/L (7-40); Albumin 3.8 g/dL (3.2-4.8); Anion Gap 9 (5-15); Aspartate Aminotransferase 22 U/L (<34); BUN/Creatinine Ratio 13.3 (10.0-20.0); Blood Urea Nitrogen 12 mg/dL (9-23); Calcium 9.7 mg/dL (8.7-10.4); Carbon Dioxide 24 mmol/L (20-31); Glucose 101 mg/dL (74-106); Magnesium 1.9 mg/dL (1.6-2.6); Total Protein 6.4 g/dL (5.7-8.2)
[2024-12-06 19:39] LABS: Alkaline Phosphatase 37 U/L (46-116); Bilirubin, Total 0.8 mg/dL (0.2-1.0); Blood Alcohol < 3.0 mg/dL (<10); Chloride 112 mmol/L (98-107); Potassium 3.2 mmol/L (3.5-5.1); Sodium 145 mmol/L (136-145)
[2024-12-06] MEDS: SODIUM CHLORIDE 0.9% 1,000 ML IVB ONE (20:23)
--- NOTE | 2024-12-06 20:36 | DVH ---
EXAM: XY CHEST PORTABLE CLINICAL HISTORY: SOB TECHNIQUE: Single AP view of the chest WID: COMPARISON: CHEST PORTABLE on DOS: 06/03/22 FINDINGS: Lines and tubes: None Chest: The heart size and pulmonary vasculature is within normal limits. Calcified plaque projects over the aortic arch. No pleural effusion, pneumothorax, or consolidation. The osseous structures are grossly intact. Marked right and moderate left glenohumeral arthrosis. Mil d multilevel thoracic spondylosis. IMPRESSION: No acute cardiopulmonary abnormality.
--- NOTE | 2024-12-06 20:56 | DVH ---
CLINICAL HISTORY: ALOC TECHNIQUE: Helical imaging carried out from skull base to vertex without intravenous contrast. This e xam was performed according to our departmental dose optimization program. Up-to-date CT equipment an d radiation dose reduction techniques are utilized as appropriate. CTDIVol: 56.21 mGy DLP: 1013.58 mGy-cm WID: COMPARISON: HEAD WITHOUT CONTRAST on DOS: 06/03/22 FINDINGS: Mild cerebral volume loss with concordant prominence of the subarachnoid spaces and ventricles. Moder ate to marked patchy and confluent white matter hypodensities consistent with nonspecific white matte r disease. 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 There is no midline shift or mass effect. The rose white matter interfaces are maintained. The basal cisterns are patent. There is no evidence of acute intracranial hemorrhage or extra-axial fluid aranza ection. The mastoid air cells and visualized paranasal sinuses are well-aerated aside from mild paran sue sinus mucosal thickening.. Prior ocular lens replacement. IMPRESSION: 1. No acute intracranial abnormality. 2. Cerebral volume loss and moderate to marked chronic microvascular ischemia.
[2024-12-06] MEDS: POTASSIUM CHL 20 Meq TABLET PO ONE (23:09)
[2024-12-06 23:16] LABS: Urine Bacteria None Seen /hpf (None Seen)
[2024-12-06 23:34] LABS: Urine Blood Negative /uL (Negative); Urine Clarity Clear (Clear); Urine Color Colorless (Yellow); Urine Protein, UAD Negative (Negative); Urine Specific Gravity 1.008 (1.001-1.035); Urine Squamous Epithelial Cell None Seen /hpf (<5); Urine Urobilinogen Normal (Negative); Urine WBC < 1 /HPF (0-3)
[2024-12-06 23:35] LABS: Amphetamine Screen, Urine Neg (NEGATIVE); Barbiturate Scree,Urine Neg (NEGATIVE); Benzodiazephine Screen, Urine Neg (NEGATIVE); Cannabinoid Screen, Urine Neg (NEGATIVE); Cocaine Screen, Urine Neg (NEGATIVE); Opiate Scree,Urine Neg (NEGATIVE); Phencyclidine Screen, Urine Neg (NEGATIVE)
[2024-12-07] MEDS: SODIUM CHLORIDE 0.9% 1,000 ML IV ONE (00:30)
[2024-12-07] MEDS: POTASSIUM CHL 20 Meq TABLET PO ONE (02:44)
[2024-12-07] MEDS: levETIRAcetam 500 MG TAB PO ONE (02:44)
[2024-12-07] MEDS: TAMSULOSIN HYDROCHLORIDE 0.4 MG CAP PO ONE (02:45)
[2024-12-07] MEDS: amLODIPine BESYLATE 5 MG TAB PO ONE (02:46)
[2024-12-07 05:22] LABS: Basophils # (auto) 0.1 10 ^3/uL (0-0.2); Eosinophils # (auto) 0.2 10 ^3/uL (0-0.8); Eosinophils % (auto) 4.4 % (0.0-7.0); Hemoglobin 14.9 g/dL (13.5-17.5); Lymphocytes # (auto) 2.2 10 ^3/uL (0.4-5.4); Lymphocytes % (auto) 43.2 % (10.0-50.0); Mean Corpuscular Hemoglobin 31.6 pg (28.0-32.0); Mean Corpuscular Hgb Conc. 34.6 g/dL (32.0-36.0); Mean Corpuscular Volume 91.4 fL (80.0-100.0); Monocytes # (auto) 0.6 10 ^3/uL (0-1.3); Monocytes % (auto) 11.8 % (0.0-12.0); Neutrophils % (auto) 39.6 % (37.0-80.0); Nucleated Red Blood Cells % 0.2 %; Platelet Count (auto) 164 10^3/uL (140-450); Red Blood Cells 4.71 10^6/uL (4.5-5.90); Red Cell Distribution Width 13.2 % (11.8-14.3); White Blood Cell 5.1 10^3/uL (4.4-10.8)
[2024-12-07 05:26] LABS: COVID19 ANTIGEN SOFIA FIA NEGATIVE (NEGATIVE)
[2024-12-07 05:29] LABS: Rapid Influenza A Negative (Negative); Rapid Influenza B Negative (Negative)
[2024-12-07 05:31] LABS: Sodium 144 mmol/L (136-145)
[2024-12-07 05:32] LABS: Anion Gap 7 (5-15); Carbon Dioxide 26 mmol/L (20-31)
[2024-12-07 05:33] LABS: Calcium 9.6 mg/dL (8.7-10.4)
[2024-12-07 05:37] LABS: Glucose 81 mg/dL (74-106)
[2024-12-07] MEDS: HALOPERIDOL LACTATE 5 MG/ML INJ VIAL IM ONE (05:37)
[2024-12-07] MEDS: HALOPERIDOL LACTATE 5 MG/ML INJ VIAL ONE (05:38)
[2024-12-07 05:39] LABS: Blood Urea Nitrogen 9 mg/dL (9-23); Chloride 111 mmol/L (98-107); Potassium 3.4 mmol/L (3.5-5.1)
[2024-12-07] MEDS: PANTOPRAZOLE 40 MG TAB PO SCH (06:00)
[2024-12-07 06:06] VITALS: PULSE 58; RESP 18; O2SAT 95
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
[2024-12-07 08:02] LABS: INR 1.04 (0.9-1.15); Partial Thromboplastin Time 32.2 SEC (24.5-34.5)
[2024-12-07] MEDS: POTASSIUM CHL 20MEQ/100ML 100 ML IV ONE (08:35)
[2024-12-07] MEDS: ASPirin-EC 81 mg tab PO SCH (10:00)
[2024-12-07] MEDS: levETIRAcetam 500 MG TAB PO SCH (10:00)
[2024-12-07] MEDS ORDERED: amLODIPine BESYLATE 5 MG TAB PO SCH (10:00)
[2024-12-07] MEDS: amLODIPine BESYLATE 5 MG TAB PO SCH (10:00)
[2024-12-07 10:48] LABS: Folate (Folic Acid) 22.57 ng/mL (>5.38)
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
[2024-12-07] MEDS ORDERED: ENOXAPARIN SOD 40 MG/0.4 ML SYRINGE SC ONE (11:45)
--- NOTE | 2024-12-07 12:04 | DVHINCON2 ---
Date of Service if different f: Dec 07, 2024 Time of Service: 12:03 Consultation ([place]) Labs Laboratory Tests Test 12/06/24 19:15 12/06/24 23:12 12/07/24 04:19 12/07/24 05:08 Lactic Acid Level 1.1 mmol/L (0.4-2.0) Magnesium Level 1.9 mg/dL (1.6-2.6) Total Bilirubin 0.8 mg/dL (0.2-1.0) Aspartate Amino Transf (AST/SGOT) 22 U/L (<34) Alanine Aminotransferase (ALT/SGPT) 12 U/L (7-40) Alkaline Phosphatase 37 U/L (46-116) Total Protein 6.4 g/dL (5.7-8.2) Albumin 3.8 g/dL (3.2-4.8) Plasma/Serum Blood Alcohol < 3.0 mg/dL (<10) Urine Color Colorless (Yellow) Urine Clarity Clear (Clear) Urine pH 7.0 (5.0-9.0) Urine Specific [place] 1.008 (1.001-1.035) Urine Protein Negative (Negative) Urine Ketones Trace (Negative) Urine Blood Negative /uL (Negative) Urine Nitrite Negative (Negative) Urine Bilirubin Negative (Negative) Urine Urobilinogen Normal mg/dL (Negative) Urine Leukocyte Esterase Negative /uL (Negative) Urine RBC None seen /hpf (0 - 3) Urine Microscopic WBC < 1 /HPF (0-3) Urine Squamous Epithelial Cells None seen /hpf (<5) Urine Bacteria None seen /hpf (None Seen) Urine Glucose Normal mg/dL (Normal) Urine Opiates Screen Neg (NEGATIVE) Urine Fentanyl Screen Neg (NEGATIVE) Urine Barbiturates Screen Neg (NEGATIVE) Urine Phencyclidine Screen Neg (NEGATIVE) Urine Amphetamines Screen Neg (NEGATIVE) Urine Benzodiazepines Screen Neg (NEGATIVE) Urine Cocaine Screen Neg (NEGATIVE) Urine Cannabinoids Screen Neg (NEGATIVE) Influenza Type A Antigen Negative (Negative) Influenza Type B Antigen Negative (Negative) SARS-CoV-2 Antigen (Rapid) Negative (NEGATIVE) White Blood Count 5.1 10^3/uL (4.4-10.8) Red Blood Count 4.71 10^6/uL (4.5-5.90) Hemoglobin 14.9 g/dL (13.5-17.5) Hematocrit 43.0 % (41.0-53.0) Mean Corpuscular Volume 91.4 fL (80.0-100.0) Mean Corpuscular Hemoglobin 31.6 pg (28.0-32.0) Mean Corpuscular Hemoglobin Concent 34.6 g/dL (32.0-36.0) Red Cell Distribution Width 13.2 % (11.8-14.3) Platelet Count 164 10^3/uL (140-450) Mean Platelet Volume 7.9 fL (6.9-10.8) Neutrophils (%) (Auto) 39.6 % (37.0-80.0) Lymphocytes (%) (Auto) 43.2 % (10.0-50.0) Monocytes (%) (Auto) 11.8 % (0.0-12.0) Eosinophils (%) (Auto) 4.4 % (0.0-7.0) Basophils (%) (Auto) 1.0 % (0.0-2.0) Neutrophils # (Auto) 2.0 10 ^3/uL (1.6-8.6) Lymphocytes # (Auto) 2.2 10 ^3/uL (0.4-5.4) Monocytes # (Auto) 0.6 10 ^3/uL (0-1.3) Eosinophils # (Auto) 0.2 10 ^3/uL (0-0.8) Basophils # (Auto) 0.1 10 ^3/uL (0-0.2) Nucleated Red Blood Cells 0.2 % Prothrombin Time 11.0 sec (9.3-11.8) Prothromb Time International Ratio 1.04 (0.9-1.15) Activated Partial Thromboplast Time 32.2 SEC (24.5-34.5) Sodium Level 144 mmol/L (136-145) Potassium Level 3.4 mmol/L (3.5-5.1) Chloride Level 111 mmol/L (98-107) Carbon Dioxide Level 26 mmol/L (20-31) Anion Gap 7 (5-15) Blood Urea Nitrogen 9 mg/dL (9-23) Creatinine 0.69 mg/dL (0.700-1.30) Glomerular Filtration Rate Calc 94 mL/min (>90) BUN/Creatinine Ratio 13.0 (10.0-20.0) Serum Glucose 81 mg/dL (74-106) Calcium Level 9.6 mg/dL (8.7-10.4) Vitamin B12 Level 258 pg/mL (211-911) Vitamin D 25-Hydroxy 54.2 ng/mL (30.0-100) Folic Acid (LAB) 22.57 ng/mL (>5.38) Thyroid Stimulating Hormone (TSH) 2.99 uIU/mL (0.55-4.78) Test 12/07/24 10:21 Ammonia < 10 umol/L (11-32) Vitals Vital Signs Date Time Temp Pulse Resp B/P (MAP) Pulse Ox O2 Delivery O2 Flow Rate FiO2 12/07/24 06:06 58 18 95 Room Air* 0 21 12/07/24 05:00 97.3 156/71 (99) 97.3 Current medications Current Medications Medications Dose Ordered Sig/Dorian Route Start Time Stop Time Status Last Admin Dose Admin Tamsulosin HCl 0.4 mg QPM PO 12/07/24 18:00 Amlodipine Besylate 10 mg DAILY PO 12/07/24 10:00 Levetiracetam 500 mg BID PO 12/07/24 10:00 Pantoprazole Sodium 40 mg DAILY@0600 PO 12/07/24 06:00 Acetaminophen 650 mg Q4HP PRN PO 12/07/24 00:30 Aspirin 81 mg DAILY PO 12/07/24 10:00 Hold Atorvastatin Calcium 40 mg HS PO 12/07/24 22:00 Calcium/Vitamin D 1 tab DAILY PO 12/08/24 10:00 UNV Enoxaparin Sodium 40 mg DAILY SC 12/08/24 10:00 UNV Consult request unclear. Awaiting MD call back for clarification since 12:34PM. KRISHAN ALEXIS MD Dec 07, 2024 12:04
[2024-12-07 13:00] VITALS: BP 160/70; PULSE 57; RESP 16; TEMP 97.6; O2SAT 98
[2024-12-07] MEDS: CALCIUM W/VIT D (600MG/400IU) TAB PO ONE (14:08)
[2024-12-07] MEDS: ENOXAPARIN SOD 30 MG/0.3 ML SYRINGE SC ONE (14:08)
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
[2024-12-07 16:49] VITALS: BP 115/58; PULSE 52; RESP 16; TEMP 97.8; O2SAT 98
[2024-12-07] MEDS: TAMSULOSIN HYDROCHLORIDE 0.4 MG CAP PO SCH (18:17)
[2024-12-07 20:00] VITALS: RESP 18; O2SAT 95
[2024-12-07 21:00] VITALS: BP 108/69; PULSE 71; RESP 17; TEMP 97.6; O2SAT 93
[2024-12-07] MEDS: ATORVASTATIN 20 MG TAB PO SCH (21:26)
[2024-12-08] VITALS (7 sets, daily range): BP systolic 119–150; BP diastolic 47–86; PULSE 54–98; RESP 16–18; TEMP 97.6–97.9; O2SAT 93–98
[2024-12-08] MEDS: QUEtiapine FUMARATE 25 MG TAB PO ONE (00:05)
[2024-12-08] MEDS: HALOPERIDOL LACTATE 5 MG/ML INJ VIAL IM ONE (04:47)
[2024-12-08] MEDS: CYANOCOBALAMIN (B-12) 1000 MCG/1 ML VIAL IM ONE (04:49)
[2024-12-08 07:47] LABS: Alanine Aminotransferase 14 U/L (7-40); Alkaline Phosphatase 42 U/L (46-116); Anion Gap 9 (5-15); Aspartate Aminotransferase 35 U/L (<34); BUN/Creatinine Ratio 12.8 (10.0-20.0); Bilirubin, Total 0.4 mg/dL (0.2-1.0); Blood Urea Nitrogen 10 mg/dL (9-23); Carbon Dioxide 25 mmol/L (20-31); Chloride 111 mmol/L (98-107); Glucose 84 mg/dL (74-106); Potassium 3.4 mmol/L (3.5-5.1); Sodium 145 mmol/L (136-145); Total Protein 6.6 g/dL (5.7-8.2)
[2024-12-08 07:48] LABS: Calcium 10.4 mg/dL (8.7-10.4)
[2024-12-08] MEDS: CALCIUM W/VIT D (600MG/400IU) TAB PO SCH (10:57)
[2024-12-08] MEDS: ENOXAPARIN SOD 30 MG/0.3 ML SYRINGE SC SCH (10:57)
[2024-12-08] MEDS: POTASSIUM EFFERVESENT TAB 25 MEQ PO ONE ×2 (10:58→17:23)
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
--- NOTE | 2024-12-08 16:00 | DVH ---
ULTRASOUND AORTIC CLINICAL INDICATION: Abdominal aortic aneurysm, distal aorta 3.5 cm, follow up ex TECHNIQUE: Multiple sonographic images of the abdominal aorta were obtained. FINDINGS: The aorta measures 1.9, 2.8 and 1.9 cm in the AP diameter, at the superior, mid and i nferior portions, respectively. The right iliac artery measures 1.1mm in diameter. The left iliac me asured 1.2mm in diameter. There is no evidence for atherosclerotic disease. There is no periaortic fl uid. IMPRESSION: Abdominal aortic aneurysm measuring 3 cm.
[2024-12-08] MEDS: Ensure HIGH Protein Chocolate 8oz Bottle PO SCH (18:00)
[2024-12-08] MEDS ORDERED: HALOPERIDOL LACTATE 5 MG/ML INJ VIAL IM PRN ×2 (19:15→23:15)
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
[2024-12-08] MEDS ORDERED: LORazepam 2MG/ML-1ML VIAL IV PRN (23:15)
[2024-12-09 05:00] VITALS: BP 137/69; PULSE 58; RESP 17; TEMP 98; O2SAT 97
[2024-12-09 07:27] LABS: Anion Gap 8 (5-15); Carbon Dioxide 29 mmol/L (20-31)
[2024-12-09 07:29] LABS: Calcium 10.4 mg/dL (8.7-10.4); Chloride 109 mmol/L (98-107); Potassium 3.4 mmol/L (3.5-5.1); Sodium 146 mmol/L (136-145)
[2024-12-09 07:33] LABS: BUN/Creatinine Ratio 19.1 (10.0-20.0); Blood Urea Nitrogen 17 mg/dL (9-23); Triglycerides 59 mg/dL (< 150)
[2024-12-09 07:34] LABS: LDL Cholesterol 29 mg/dL (< 100)
[2024-12-09 07:35] LABS: Cholesterol 103 mg/dL (< 200); HDL Cholesterol 57 mg/dL (40-59)
[2024-12-09 07:40] LABS: Glucose 108 mg/dL (74-106)
[2024-12-09 09:00] VITALS: BP 130/69; PULSE 59; RESP 16; TEMP 97.3; O2SAT 98
--- NOTE | 2024-12-09 10:04 | DVH ---
MRI BRAIN HEAD WO CONTRAST INDICATION: ALOC EXAM DATE: 12/09/2024 09:09 AM COMPARISON: BRAIN HEAD WO CONTRAST on DOS: 06/06/22 PROCEDURE: Using a 1.5 Tabitha scanner, multisequence multiplanar imaging of the brain was obtained. FINDINGS: Possible tiny foci of diffusion restriction in the right cerebellum, which could be infarct vs artifact. Multiple scattered foci of susceptibility hypointensity in the cerebrum and cerebellum could be seen with prior micro hemorrhage. The brain otherwise shows normal morphology and signal jen racteristics. The ventricles are normal in size. The midline structures are intact. The major intrac ranial flow voids are present. The aerated spaces are normal. The orbital contents and extracranial s oft tissues appear normal. IMPRESSION: Multiple scattered foci of susceptibility hypointensity in the cerebrum and cerebellum could be seen with prior micro hemorrhage. Possible tiny foci of diffusion restriction in the right cerebellum, which could be infarct vs artifa ct.
--- NOTE | 2024-12-09 10:51 | DVHPN2 ---
Progress Note - Dictate Date Seen: Dec 09, 2024 Medical Necessity Reason Pt with a Central, PICC or Fol: No Subjective Mr. Lomas is a 79 years old gentleman with a history of hypertension, arthritis, seizure disorder, BPH, the patient was admitted from his SNF on 12/06/2024 with a chief complaint of altered level consciousness. I saw him on 06/04/2022 for ALOC (MRI: Multiple strokes) I have seen and examined the patient, I have talked to his nurse and sitter, and other medical staff. He is awake, he may only oriented to himself, he has no idea what happened to him before he came to the hospital, what he talked about was not appropriate to my questions Urinalysis, 12/06/2024: Unremarkable Plasma alcohol, 12/06/2024: Normal UDS, 12/06/24: Negative CBC, 12/07/2024: Unremarkable CMP, 12/07/2024: Unremarkable Na, 11/27/24: 144, 12/08/24: 145, 12/09/2024: 146 Ammonia, 12/07/2024: <10 Vitamin B12, 06/14: 337, 12/07/24: 258 Folic acid, 05/2022: 24. 12/07/2024: 22.57 TSH, 05/2022: 0.99, 12/07/2024: 2.99 EEG, 06/03/2022: Normal Echocardiogram, 06/07/2022: limited study lvef 65% by visual estimate moderate lvh normal rv function normal atria moderate , mean gradient of 19 mmhg, heavily calcified normal pericardium Carotid Doppler, 06/06/2022: 1. Atherosclerotic plaque at the carotid bulbs and internal carotid arteries. Otherwise, the bilateral common carotid, extracranial internal carotid and vertebral arteries are patent with normal antegrade flow. 2. Based on morphology and elevated velocities, there is suggestion of 50-69% stenosis within the left internal carotid artery. Chest x-ray, 12/06/2024: No acute cardiopulmonary abnormality. CT head, 06/03/2022: No intracranial hemorrhage. Recommend MRI if symptoms persist CT head, 12/06/2024: 1. No acute intracranial abnormality. 2. Cerebral volume loss and moderate to marked chronic microvascular ischemia MRI head, 06/06/2022: There are multiple tiny bilateral early subacute watershed territory infarcts MR head, 12/09/2024: Multiple scattered foci of susceptibility hypointensity in the cerebrum and cerebellum could be seen with prior micro hemorrhage. Possible tiny foci of diffusion restriction in the right cerebellum, which could be infarct vs artifact. vital signs Vital Sign Date Time Temp Pulse Resp B/P (MAP) Pulse Ox O2 Delivery O2 Flow Rate FiO2 12/09/24 09:53 145/90 12/09/24 05:00 98.0 58 17 97 98.0 12/08/24 20:00 Room Air* 0 21 Total Intake and Output 12/08/24 12/08/24 12/09/24 15:00 23:00 07:00 Intake Total 460 ml 300 ml Balance 460 ml 300 ml medications Current Medications Medications Dose Ordered Sig/Dorian Route Start Time Stop Time Status Last Admin Dose Admin Tamsulosin HCl 0.4 mg QPM PO 12/07/24 18:00 12/08/24 17:24 0.4 MG Amlodipine Besylate 10 mg DAILY PO 12/07/24 10:00 12/09/24 09:53 10 MG Levetiracetam 500 mg BID PO 12/07/24 10:00 12/09/24 09:53 500 MG Pantoprazole Sodium 40 mg DAILY@0600 PO 12/07/24 06:00 12/09/24 05:20 40 MG Acetaminophen 650 mg Q4HP PRN PO 12/07/24 00:30 Aspirin 81 mg DAILY PO 12/07/24 10:00 Hold Atorvastatin Calcium 40 mg HS PO 12/07/24 22:00 12/08/24 21:42 40 MG Calcium/Vitamin D 1 tab DAILY PO 12/08/24 10:00 12/09/24 09:53 1 TAB Enoxaparin Sodium 30 mg DAILY SC 12/08/24 10:00 12/09/24 10:00 30 MG Enteral Nutritional Formula 240 ml BIDWM PO 12/08/24 18:00 12/09/24 08:09 240 ML Lorazepam 1 mg ONCE PRN IV 12/08/24 23:15 Haloperidol Lactate 2.5 mg Q6HP PRN IM 12/08/24 23:15 Haloperidol Lactate 2.5 mg Q6HP PRN IM 12/08/24 23:15 UNV objective General: the patient is well developed and nourished. No acute distress. MENTAL STATUS: Awake and alert. Oriented to person SPEECH, LANGUAGE, HIGHER CORTICAL FUNCTION: no aphasia or dysathria. CRANIAL NERVES: Pupils are equal, round and reactive. EOMs full and conjugate. Facial sensation intact in all three divisions bilaterally. Mandibular strength intact. Facial muscles symmetrical and strength intact. SENSATION: Sensation to touch and pinprick is normal. MOTOR: Normal tone in the upper and lower extremity. Normal muscle bulk. No fasciculations. No abnormal movements or posturing. Muscle strength of the major groups in the extremities looks normal REFLEXES: Deep tendon reflexes are symmetrical. No pathological reflexes. CEREBELLAR/COORDINATION: Deferred GAIT/STATION: deferred. laboratory and microbiology Laboratory Tests 12/09/24 05:31 12/07/24 05:08 Test 12/09/24 05:31 Range/Units Serum Glucose 108 H 74-106 mg/dL Problem List Acute metabolic encephalopathy ? Acute cerebellum stroke Clonic Multiple strokes Cognitive dysfunction ? Dementia Reported seizure Assessment/Plan Monitoring Supportive treatment Telemetry EEG Carotid Doppler, GRAHAM Aspirin 81 mg daily Lipitor 40 mg daily Keppra 500 mg twice daily Ativan for seizure breakthrough Haldol 2.5 mg IM Q 6 hours p.r.n. for agitation Social work Re: Family contact information DMV report in the chart This medical document was created using an electronic medical record system with [employer] dictation system. Although this document has been carefully reviewed, there may still be some phonetic and typographical errors. These areas are purely typographical due to imperfections of the software programs, and do not reflect any compromise in the patient's medical care. Prognosis poor Plan discussed with: Other Total Time (mins): 35 ALEXI ORELLANA MD Dec 09, 2024 10:50
--- NOTE | 2024-12-09 11:49 | DVH ---
Indication: cva Technique: Real-time ultrasound images of the neck vessels with rose-scale, color and wave Doppler we re obtained. Comparison: CAROTID DUPLX W COLOR DOP on DOS: 06/06/22 Findings: Moderate diffuse atherosclerotic calcification disease/plaque. The following peak systolic velocities were recorded in cm/sec: Right internal carotid: 52 Right common carotid: 62 Right external carotid: 85 Right internal/common carotid ratio: 0.8 Left internal carotid: 99 Left common carotid: 66 Left external carotid: 89 Left internal/common carotid ratio: 1.5 Right vertebral artery: Patent with normal antegrade direction of flow. Left vertebral artery: Patent with normal antegrade direction of flow. Impression: No hemodynamically significant stenosis by velocity criteria. Diffuse atherosclerotic calcification disease/plaque.
[2024-12-09 13:00] VITALS: BP 131/71; PULSE 61; RESP 16; TEMP 97.4; O2SAT 97
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
[2024-12-09] MEDS: THIAMINE HCL 100 MG TAB PO ONE (16:00)
[2024-12-09] MEDS: MULTIPLE VITAMIN TAB PO ONE (16:00)
[2024-12-09 17:00] VITALS: BP 117/70; PULSE 57; RESP 17; TEMP 97.5; O2SAT 98
[2024-12-09 21:00] VITALS: BP 105/60; PULSE 60; RESP 16; TEMP 97.4; O2SAT 96
[2024-12-09] MEDS: HALOPERIDOL LACTATE 5 MG/ML INJ VIAL IM PRN (22:11)
[2024-12-10] VITALS (7 sets, daily range): BP systolic 129–152; BP diastolic 60–87; PULSE 49–109; RESP 17–18; TEMP 97.8–97.9; O2SAT 95–96
[2024-12-10] MEDS: HALOPERIDOL LACTATE 5 MG/ML INJ VIAL IM ONE (03:15)
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
[2024-12-10] MEDS: THIAMINE HCL 100 MG TAB PO SCH (10:00)
[2024-12-10] MEDS: MULTIPLE VITAMIN TAB PO SCH (10:00)
--- NOTE | 2024-12-10 21:24 | DVHPN2 ---
Progress Note - Dictate Date Seen: Dec 10, 2024 Medical Necessity Reason Pt with a Central, PICC or Fol: No Subjective Mr. Lomas is a 79 years old gentleman with a history of hypertension, arthritis, seizure disorder, BPH, the patient was admitted from his [facility] on [facility]2024 with a chief complaint of altered level consciousness. I saw him on 06/04/2022 for ALOC (MRI: Multiple strokes) I have seen and examined the patient, I have talked to his nurse and sitter, and other medical staff. He is arousable, only oriented to himself Urinalysis, 12/06/2024: Unremarkable Plasma alcohol, 12/06/2024: Normal UDS, 12/06/24: Negative CBC, 12/07/2024: Unremarkable CMP, 12/07/2024: Unremarkable Na, 11/27/24: 144, 12/08/24: 145, 12/09/2024: 146 Ammonia, 12/07/2024: <10 Vitamin B12, 06/14: 337, 12/07/24: 258 Folic acid, 05/2022: 24. 12/07/2024: 22.57 TSH, 05/2022: 0.99, 12/07/2024: 2.99 EEG, 06/03/2022: Normal Echocardiogram, 06/07/2022: limited study lvef 65% by visual estimate moderate lvh normal rv function normal atria moderate , mean gradient of 19 mmhg, heavily calcified normal pericardium Carotid Doppler, 12/09/2024: No hemodynamically significant stenosis by velocity criteria. Diffuse atherosclerotic calcification disease/plaque. Chest x-ray, 12/06/2024: No acute cardiopulmonary abnormality. CT head, 06/03/2022: No intracranial hemorrhage. Recommend MRI if symptoms persist CT head, 12/06/2024: 1. No acute intracranial abnormality. 2. Cerebral volume loss and moderate to marked chronic microvascular ischemia MRI head, 06/06/2022: There are multiple tiny bilateral early subacute watershed territory infarcts MR head, 12/09/2024: Multiple scattered foci of susceptibility hypointensity in the cerebrum and cerebellum could be seen with prior micro hemorrhage. Possible tiny foci of diffusion restriction in the right cerebellum, which could be infarct vs artifact. vital signs Vital Sign Date Time Temp Pulse Resp B/P (MAP) Pulse Ox O2 Delivery O2 Flow Rate FiO2 12/10/24 21:00 69 18 150/61 (90) 95 12/10/24 17:00 97.8 97.8 12/10/24 08:00 Room Air* 0 21 Total Intake and Output 12/09/24 12/09/24 12/10/24 15:00 23:00 07:00 Intake Total 910 ml 200 ml Balance 910 ml 200 ml medications Current Medications Medications Dose Ordered Sig/Dorian Route Start Time Stop Time Status Last Admin Dose Admin Tamsulosin HCl 0.4 mg QPM PO 12/07/24 18:00 12/10/24 18:55 0.4 MG Amlodipine Besylate 10 mg DAILY PO 12/07/24 10:00 12/09/24 11:08 10 MG Levetiracetam 500 mg BID PO 12/07/24 10:00 12/10/24 20:57 500 MG Pantoprazole Sodium 40 mg DAILY@0600 PO 12/07/24 06:00 12/09/24 05:20 40 MG Acetaminophen 650 mg Q4HP PRN PO 12/07/24 00:30 Aspirin 81 mg DAILY PO 12/07/24 10:00 Hold Atorvastatin Calcium 40 mg HS PO 12/07/24 22:00 12/10/24 20:57 40 MG Calcium/Vitamin D 1 tab DAILY PO 12/08/24 10:00 12/09/24 09:53 1 TAB Enoxaparin Sodium 30 mg DAILY SC 12/08/24 10:00 12/10/24 12:44 30 MG Enteral Nutritional Formula 240 ml BIDWM PO 12/08/24 18:00 12/10/24 18:55 240 ML Lorazepam 1 mg ONCE PRN IV 12/08/24 23:15 Haloperidol Lactate 2.5 mg Q6HP PRN IM 12/08/24 23:15 UNV Multivitamins 1 tab DAILY PO 12/10/24 10:00 Thiamine HCl 100 mg DAILY PO 12/10/24 10:00 Haloperidol Lactate 2.5 mg Q6HP PRN IM 12/10/24 03:00 objective General: the patient is well developed and nourished. No acute distress. MENTAL STATUS: Awake and alert. Oriented to person SPEECH, LANGUAGE, HIGHER CORTICAL FUNCTION: no aphasia or dysathria. CRANIAL NERVES: Pupils are equal, round and reactive. EOMs full and conjugate. Facial sensation intact in all three divisions bilaterally. Mandibular strength intact. Facial muscles symmetrical and strength intact. SENSATION: Sensation to touch and pinprick is normal. MOTOR: Normal tone in the upper and lower extremity. Normal muscle bulk. No fasciculations. No abnormal movements or posturing. Muscle strength of the major groups in the extremities looks normal REFLEXES: Deep tendon reflexes are symmetrical. No pathological reflexes. CEREBELLAR/COORDINATION: Deferred GAIT/STATION: deferred. laboratory and microbiology Laboratory Tests 12/09/24 05:31 12/07/24 05:08 Test 12/09/24 05:31 Range/Units Serum Glucose 108 H 74-106 mg/dL Problem List Acute metabolic encephalopathy ? Acute cerebellum stroke Clonic Multiple strokes Cognitive dysfunction ? Dementia Reported seizure Assessment/Plan Monitoring Supportive treatment Telemetry EEG GRAHAM Aspirin 81 mg daily Lipitor 40 mg daily Keppra 500 mg twice daily Ativan for seizure breakthrough Haldol 2.5 mg IM Q 6 hours p.r.n. for agitation Social work Re: Family contact information DMV report in the chart This medical document was created using an electronic medical record system with [employer] dictation system. Although this document has been carefully reviewed, there may still be some phonetic and typographical errors. These areas are purely typographical due to imperfections of the software programs, and do not reflect any compromise in the patient's medical care. Prognosis poor Dietary Evaluation Review Comments: Monitor PO intake to meet 75% of his needs Expected Outcomes/Goals: Gradual wt gain Plan discussed with: Other ALEXI ORELLANA MD Dec 10, 2024 21:24
[2024-12-11] VITALS (12 sets, daily range): BP systolic 96–182; BP diastolic 47–86; PULSE 53–79; RESP 14–25; TEMP 98.2–98.6; O2SAT 96–100
[2024-12-11 06:12] LABS: Anion Gap 7 (5-15); Carbon Dioxide 26 mmol/L (20-31); Potassium 3.6 mmol/L (3.5-5.1); Sodium 141 mmol/L (136-145)
[2024-12-11 06:13] LABS: Calcium 9.8 mg/dL (8.7-10.4)
[2024-12-11 06:15] LABS: Chloride 108 mmol/L (98-107)
[2024-12-11 06:18] LABS: BUN/Creatinine Ratio 25.4 (10.0-20.0); Blood Urea Nitrogen 15 mg/dL (9-23); Glucose 91 mg/dL (74-106)
--- NOTE | 2024-12-11 11:40 | DVHPN2 ---
Consult Progress Note Subjective Other Systems: Patient in sinus bradycardia on school bus monitor without any significant pauses or atrioventricular blocks. Objective vital signs Vital Sign Date Time Temp Pulse Resp B/P (MAP) Pulse Ox O2 Delivery O2 Flow Rate FiO2 12/11/24 09:03 98.6 64 16 182/78 (112) 96 98.6 12/11/24 08:00 Room Air* 0 21 Total Intake and Output 12/10/24 12/10/24 12/11/24 15:00 23:00 07:00 Intake Total 100 ml 300 ml Output Total 350 ml Balance 100 ml -50 ml medications Current Medications Medications Dose Ordered Sig/Dorian Route Start Time Stop Time Status Last Admin Dose Admin Tamsulosin HCl 0.4 mg QPM PO 12/07/24 18:00 12/10/24 18:55 0.4 MG Amlodipine Besylate 10 mg DAILY PO 12/07/24 10:00 12/09/24 11:08 10 MG Levetiracetam 500 mg BID PO 12/07/24 10:00 12/10/24 20:57 500 MG Pantoprazole Sodium 40 mg DAILY@0600 PO 12/07/24 06:00 12/11/24 05:31 40 MG Acetaminophen 650 mg Q4HP PRN PO 12/07/24 00:30 Aspirin 81 mg DAILY PO 12/07/24 10:00 Hold Atorvastatin Calcium 40 mg HS PO 12/07/24 22:00 12/10/24 20:57 40 MG Calcium/Vitamin D 1 tab DAILY PO 12/08/24 10:00 12/09/24 09:53 1 TAB Enoxaparin Sodium 30 mg DAILY SC 12/08/24 10:00 12/10/24 12:44 30 MG Enteral Nutritional Formula 240 ml BIDWM PO 12/08/24 18:00 12/11/24 08:00 240 ML Lorazepam 1 mg ONCE PRN IV 12/08/24 23:15 Haloperidol Lactate 2.5 mg Q6HP PRN IM 12/08/24 23:15 UNV Multivitamins 1 tab DAILY PO 12/10/24 10:00 Thiamine HCl 100 mg DAILY PO 12/10/24 10:00 Haloperidol Lactate 2.5 mg Q6HP PRN IM 12/10/24 03:00 Hydralazine HCl 10 mg Q6HP PRN IV 6/20/25 10:15 Examination: GENERAL:Normal, LUNGS:Normal, CVS:Normal, NEURO:Abnormal (Confused) laboratory and microbiology Laboratory Tests 12/11/24 05:18 12/07/24 05:08 Test 12/11/24 05:18 Range/Units Serum Glucose 91 74-106 mg/dL Problem List/Assessment/Plan Problem List/Assessment/Plan Acute CVA, rule out cardiac etiology Rule out structural heart disease Rule out cardiac arrhythmia Questionable history of coronary artery disease Hypertension Dyslipidemia History of CVA BPH Plan/Recommendations (Dr. Willis): Neurology consulted Cardiology for possible transesophageal echocardiogram to rule out cardiac etiology of stroke. At the time of assessment, the patient is confused and only alert to self and place. Patient does not currently have a [id number] and social organization professor has been trying to find family. [employer] was able to contact the patient's sister who confirmed that the patient does not have a or children. Per notes, patient's sister refuses to become patient's POA. Patient's friend named Curtis trying to become patient's POA. Spoke with neurologist who would like to proceed with transesophageal echocardiogram as this may help guide his plan of treatment. Consents for procedure signed between knit goods washer and neurologist. The patient is scheduled to undergo a transesophageal echocardiogram with bubble study today, 12/11/2024. In the meantime, continue with close telemetry monitoring and notify Cardiology for any ECG changes or arrhythmias. Thank you for allowing us to care for this patient. Please call with any questions or concerns. This medical document was created using an electronic medical record system with voice recognition software and computerized dictation system. Although this document has been carefully reviewed, there might still be some phonetic and typographical errors. Occasional wrong-word or ``sound-alike substitutions may have occurred due to the inherent limitations of voice recognition software. These areas are purely typographical due to imperfections of the software programs and do not reflect any compromise in the patient's medical care. Please read the chart carefully and recognize, using context, where these substitutions have occurred. Plan discussed with: Patient, Other (Bedside RN and attending resident MD Dr. Tran) Dietary Evaluation Review Comments: Monitor PO intake to meet 75% of his needs Expected Outcomes/Goals: Gradual wt gain Date of Service: Dec 11, 2024 Billing Provider: PAUL HOLGUIN Common Visit Codes: [id number] INP/OBS CARE(HIGH) PAUL HOLGUIN NETWORK DESIGN ARCHITECT Dec 11, 2024 11:40
[2024-12-11] MEDS: hydrALAZINE HCL 20 MG/ML VL IV PRN (12:07)
[2024-12-11] MEDS: LIDOCAINE VISCOUS 2% 15ML UD MT ONE (13:00)
[2024-12-11] MEDS: fentaNYL CITRATE 100 MCG/2 ML VL IV ONE (14:30)
[2024-12-11] MEDS: MIDAZOLAM HCL 2MG/2ML 2ml VIAL (1mg/ml) IV ONE (14:30)
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
[2024-12-11] MEDS: POTASSIUM EFFERVESENT TAB 25 MEQ PO ONE (18:39)
--- NOTE | 2024-12-11 19:39 | DVHOP2 ---
Operative Report - 2 Report Details Date: 12/11/24 Preop Diagnosis: TIA Postop Diagnosis: Normal transesophageal echo Surgeon: Nghia Willis MD Anesthesiologist: Conscious sedation Anesthesia: Mac, Local Consent: The patient was informed of the risks and benefits of the procedure. These include but are not limited to complications of anesthesia, postoperative infection, incomplete relief of symptoms, recurrence of symptoms, damage to blood vessels, nerves and tendons, deep venous thrombosis, pulmonary embolism and possible need for repeat surgery in the future. Complications: No complications Findings: Normal transesophageal echo Indications for Surgery: TIA/CVA Name of Procedure Performed Transesophageal echocardiogram Procedure Details Procedure Details: After obtaining consent patient was prepped and draped in the usual fashion giv en lidocaine to gargle. A transesophageal probe was passed without difficulty. Standard views obtained. Conclusions 1. Technically good study. Sinus rhythm. Normal chamber sizes were noted. Valves appear to be structurally normal without intrinsic defects. Left ventricular function was preserved. EF noted to be around 55% with normal right ventricular function. Doppler revealed mild mitral tricuspid and mild aortic insufficiency. No pericardial effusion masses or vegetations discernible. No intra-atrial shunting. No thrombus noted in the atrial appendage. Bubble study was found to be normal. No crossover bubble seen to the left side Condition Guarded Disposition Still a Patient Date of Service: Dec 11, 2024 Billing Provider: NGHIA WILLIS Sr., MD Cardiology Common Codes: 03330-[id number] HOSP CARE(High Cardiology Procedure Codes: 06984-RCP W/IMG DOC INCL PROB ACQ NGHIA WILLIS Sr., MD Dec 11, 2024 19:39
--- NOTE | 2024-12-11 22:04 | DVHPN2 ---
Progress Note - Dictate Date Seen: Dec 11, 2024 Medical Necessity Reason Pt with a Central, PICC or Fol: No Subjective Mr. Lomas is a 79 years old gentleman with a history of hypertension, arthritis, seizure disorder, BPH, the patient was admitted from his [facility] on [facility]2024 with a chief complaint of altered level consciousness. I saw him on 06/04/2022 for ALOC (MRI: Multiple strokes) I have seen and examined the patient, I have talked to his nurse and sitter, he is awake, oriented to person, place, he is drawling pictures on a piece of paper Urinalysis, 12/06/2024: Unremarkable Plasma alcohol, 12/06/2024: Normal UDS, 12/06/24: Negative CBC, 12/07/2024: Unremarkable CMP, 12/07/2024: Unremarkable Na, 11/27/24: 144, 12/08/24: 145, 12/09/2024: 146 Ammonia, 12/07/2024: <10 Vitamin B12, 06/14: 337, 12/07/24: 258 Folic acid, 05/2022: 24. 12/07/2024: 22.57 TSH, 05/2022: 0.99, 12/07/2024: 2.99 EEG, 06/03/2022: Normal GRAHAM, 12/11/2024: Technically good study. Sinus rhythm. Normal chamber sizes were noted. Valves appear to be structurally normal without intrinsic defects. Left ventricular function was preserved. EF noted to be around 55% with normal right ventricular function. Doppler revealed mild mitral tricuspid and mild aortic insufficiency. No pericardial effusion masses or vegetations discernible. No intra-atrial shunting. No thrombus noted in the atrial appendage. Bubble study was found to be normal. No crossover bubble seen to the left side Carotid Doppler, 12/09/2024: No hemodynamically significant stenosis by velocity criteria. Diffuse atherosclerotic calcification disease/plaque. Chest x-ray, 12/06/2024: No acute cardiopulmonary abnormality. CT head, 06/03/2022: No intracranial hemorrhage. Recommend MRI if symptoms persist CT head, 12/06/2024: 1. No acute intracranial abnormality. 2. Cerebral volume loss and moderate to marked chronic microvascular ischemia MRI head, 06/06/2022: There are multiple tiny bilateral early subacute watershed territory infarcts MR head, 12/09/2024: Multiple scattered foci of susceptibility hypointensity in the cerebrum and cerebellum could be seen with prior micro hemorrhage. Possible tiny foci of diffusion restriction in the right cerebellum, which could be infarct vs artifact. vital signs Vital Sign Date Time Temp Pulse Resp B/P (MAP) Pulse Ox O2 Delivery O2 Flow Rate FiO2 12/11/24 21:00 98.5 55 17 157/86 (109) 97 98.5 12/11/24 08:00 Room Air* 0 21 Total Intake and Output 12/10/24 12/10/24 12/11/24 15:00 23:00 07:00 Intake Total 100 ml 300 ml Output Total 350 ml Balance 100 ml -50 ml medications Current Medications Medications Dose Ordered Sig/Dorian Route Start Time Stop Time Status Last Admin Dose Admin Tamsulosin HCl 0.4 mg QPM PO 12/07/24 18:00 12/11/24 18:40 0.4 MG Amlodipine Besylate 10 mg DAILY PO 12/07/24 10:00 12/09/24 11:08 10 MG Levetiracetam 500 mg BID PO 12/07/24 10:00 12/11/24 21:40 500 MG Pantoprazole Sodium 40 mg DAILY@0600 PO 12/07/24 06:00 12/11/24 05:31 40 MG Acetaminophen 650 mg Q4HP PRN PO 12/07/24 00:30 Aspirin 81 mg DAILY PO 12/07/24 10:00 Hold Atorvastatin Calcium 40 mg HS PO 12/07/24 22:00 12/11/24 21:40 40 MG Calcium/Vitamin D 1 tab DAILY PO 12/08/24 10:00 12/09/24 09:53 1 TAB Enoxaparin Sodium 30 mg DAILY SC 12/08/24 10:00 12/10/24 12:44 30 MG Enteral Nutritional Formula 240 ml BIDWM PO 12/08/24 18:00 12/11/24 18:40 240 ML Lorazepam 1 mg ONCE PRN IV 12/08/24 23:15 Haloperidol Lactate 2.5 mg Q6HP PRN IM 12/08/24 23:15 UNV Multivitamins 1 tab DAILY PO 12/10/24 10:00 Thiamine HCl 100 mg DAILY PO 12/10/24 10:00 Haloperidol Lactate 2.5 mg Q6HP PRN IM 12/10/24 03:00 Hydralazine HCl 10 mg Q6HP PRN IV 12/11/24 10:15 12/11/24 12:07 10 MG objective General: the patient is well developed and nourished. No acute distress. MENTAL STATUS: Awake and alert. Oriented to person SPEECH, LANGUAGE, HIGHER CORTICAL FUNCTION: no aphasia or dysathria. CRANIAL NERVES: Pupils are equal, round and reactive. EOMs full and conjugate. Facial sensation intact in all three divisions bilaterally. Mandibular strength intact. Facial muscles symmetrical and strength intact. SENSATION: Sensation to touch and pinprick is normal. MOTOR: Normal tone in the upper and lower extremity. Normal muscle bulk. No fasciculations. No abnormal movements or posturing. Muscle strength of the major groups in the extremities looks normal REFLEXES: Deep tendon reflexes are symmetrical. No pathological reflexes. CEREBELLAR/COORDINATION: Deferred GAIT/STATION: deferred. laboratory and microbiology Laboratory Tests 12/11/24 05:18 12/07/24 05:08 Test 12/11/24 05:18 Range/Units Serum Glucose 91 74-106 mg/dL Problem List Acute metabolic encephalopathy ? Acute cerebellum stroke Clonic Multiple strokes Cognitive dysfunction ? Dementia Reported seizure Assessment/Plan Monitoring Supportive treatment Telemetry EEG Aspirin 81 mg daily Lipitor 40 mg daily Keppra 500 mg twice daily Ativan for seizure breakthrough Haldol 2.5 mg IM Q 6 hours p.r.n. for agitation Social work case DMV report in the chart This medical document was created using an electronic medical record system with [employer] dictation system. Although this document has been carefully reviewed, there may still be some phonetic and typographical errors. These areas are purely typographical due to imperfections of the software programs, and do not reflect any compromise in the patient's medical care. Prognosis poor Dietary Evaluation Review Comments: Monitor PO intake to meet 75% of his needs Expected Outcomes/Goals: Gradual wt gain Plan discussed with: Other ALEXI ORELLANA MD Dec 11, 2024 22:04
[2024-12-12] VITALS (7 sets, daily range): BP systolic 108–143; BP diastolic 50–77; PULSE 59–95; RESP 16–19; TEMP 97.7–98.3; O2SAT 95–98
[2024-12-12 06:43] LABS: Anion Gap 8 (5-15); Carbon Dioxide 26 mmol/L (20-31); Potassium 4.3 mmol/L (3.5-5.1); Sodium 143 mmol/L (136-145)
[2024-12-12 06:44] LABS: Calcium 10.4 mg/dL (8.7-10.4)
[2024-12-12 06:49] LABS: BUN/Creatinine Ratio 29.4 (10.0-20.0); Blood Urea Nitrogen 20 mg/dL (9-23)
[2024-12-12 06:56] LABS: Chloride 109 mmol/L (98-107); Glucose 107 mg/dL (74-106)
[2024-12-12] MEDS: ACETAMINOPHEN 325 MG TAB PO PRN (09:27)
--- NOTE | 2024-12-12 14:13 | DVHPNRES ---
Progress Note Date Seen: Dec 12, 2024 Resident Creating Document: REINA BURNS RESIDENT Medical Necessity Reason Pt with a Central, PICC or Fol: No Subjective Review of Systems patient seen and examined. Patient is not agitated, restless, A&O x1, reports his name , RONIT: Normal. Objective vital signs Vital Sign Date Time Temp Pulse Resp B/P (MAP) Pulse Ox O2 Delivery O2 Flow Rate FiO2 12/12/24 09:25 131/76 12/12/24 08:38 97.9 61 16 96 97.9 12/11/24 20:00 Room Air* 0 21 Total Intake and Output 12/11/24 12/11/24 12/12/24 15:00 23:00 07:00 Intake Total 650 ml 840 ml Balance 650 ml 840 ml medications Current Medications Medications Dose Ordered Sig/Dorian Route Start Time Stop Time Status Last Admin Dose Admin Tamsulosin HCl 0.4 mg QPM PO 12/07/24 18:00 12/11/24 18:40 0.4 MG Amlodipine Besylate 10 mg DAILY PO 12/07/24 10:00 12/12/24 09:25 10 MG Levetiracetam 500 mg BID PO 12/07/24 10:00 12/12/24 09:25 500 MG Pantoprazole Sodium 40 mg DAILY@0600 PO 12/07/24 06:00 12/12/24 05:31 40 MG Acetaminophen 650 mg Q4HP PRN PO 12/07/24 00:30 12/12/24 09:27 650 MG Aspirin 81 mg DAILY PO 12/07/24 10:00 Hold Atorvastatin Calcium 40 mg HS PO 12/07/24 22:00 12/11/24 21:40 40 MG Calcium/Vitamin D 1 tab DAILY PO 12/08/24 10:00 12/12/24 09:26 1 TAB Enoxaparin Sodium 30 mg DAILY SC 12/08/24 10:00 12/12/24 09:26 30 MG Enteral Nutritional Formula 240 ml BIDWM PO 12/08/24 18:00 12/12/24 08:00 240 ML Lorazepam 1 mg ONCE PRN IV 12/08/24 23:15 Haloperidol Lactate 2.5 mg Q6HP PRN IM 12/08/24 23:15 UNV Multivitamins 1 tab DAILY PO 12/10/24 10:00 12/12/24 09:26 1 TAB Thiamine HCl 100 mg DAILY PO 12/10/24 10:00 12/12/24 09:26 100 MG Haloperidol Lactate 2.5 mg Q6HP PRN IM 12/10/24 03:00 Hydralazine HCl 10 mg Q6HP PRN IV 12/11/24 10:15 12/11/24 12:07 10 MG Examination Patient lying in bed, A&O x1, only oriented to name General: thin, afebrile, mucosae are moist Cardiovascular: Regular S1 and S2. No murmurs, gallops or rubs. No JVD elevation. No pedal edema Respiratory: Normal B/L air entry on room air. Clear lung sounds on auscultation Abdomen: Soft, nontender, nondistended, normoactive bowel sounds, no rebound tenderness, no organomegaly, no masses Genitourinary: Deferred MSK/skin: Mobilizes 4 limbs. Skin is dry and warm Neurological: Bilateral upper and lower extremity have no motor or sensory deficit. normal speech. Pupils are isocoric and reactive. laboratory and microbiology Laboratory Tests 12/12/24 05:49 12/07/24 05:08 Test 12/12/24 05:49 Range/Units Serum Glucose 107 H 74-106 mg/dL Microbiology Date/Time Source Procedure Growth Status 12/06/24 19:15 Blood Blood Culture - Final NO GROWTH AFTER 5 DAYS OF INCUBATION. Complete Problem List/Assessment/Plan Problem List/Assessment/Plan Acute metabolic encephalopathy likely due to ? CVA ? Vascular dementia History of stroke 2021 History of seizure disorder ? Dementia - continued on Keppra 500 b.i.d. - atorvastatin 40 mg HS daily - could not start aspirin 81 mg given the risk of fall and bleeding. - urinalysis is negative for any infection - urine drug screen negative - COVID and influenza negative - head CT shows no acute intracranial abnormality, cerebral volume loss and moderate to marked chronic microvascular ischemic changes - vitamin B12 and folic acid levels pending - tele psych consulted-patient does not have capacity to make decisions at this time. - neurologist consulted: MRI brain, telemetry, EEG, carotid Doppler, cardiology consultation, ?ronit, Haldol p.r.n. -cardiology consultation - RONIT 12/11: Relatively normal -carotid Doppler shows No hemodynamically significant stenosis by velocity criteria. Diffuse atherosclerotic calcification disease/plaque. -MRI brain shows Multiple scattered foci of susceptibility hypointensity in the cerebrum and cerebellum could be seen with prior micro hemorrhage. Possible tiny foci of diffusion restriction in the right cerebellum, which could be infarct vs artifact. Left ICA stenosis Distal abdominal aortic aneurysm-3 cm Ultrasound abdomen 2020 shows aneurysmal dilatation of the mid and distal abdominal aorta. The mid aorta measures 3.5 cm. The distal aorta measures 3.1 cm. A followup ultrasound is recommended every 2 years. Repeat ultrasound shows Abdominal aortic aneurysm measuring 3 cm. Carotid ultrasound 2021 there is suggestion of 50-69% stenosis within the left internal carotid artery. ?CAD status post 3 VAMSHI Hypertensive heart disease Sinus Bradycardia - continued on amlodipine 10 mg daily -aspirin could not be started given the risk of fall Osteopenia Based on DEXA scan Vitamin-D and calcium supplementation Right hip arthroplasty 2021 Monitor History of cholecystectomy Monitor Degenerative disc disease Monitor PUD prophylaxis: Protonix Lovenox 40 mg sc daily Patient does not have decision making capacity at this time per tele psych Goals of care could not be established at this time Case discussed with Dr. Burks Plan discussed with: Patient Dietary Evaluation Review Comments: Monitor PO intake to meet 75% of his needs Expected Outcomes/Goals: Gradual wt gain Date of Service: Dec 12, 2024 Billing Provider: KAZ BURKS MD Common Visit Codes: [id number] INP/OBS CARE(HIGH) REINA BURNS RESIDENT Dec 12, 2024 14:13 KAZ BURKS MD Dec 14, 2024 08:23
--- NOTE | 2024-12-12 19:34 | DVHPN2 ---
Consult Progress Note Subjective Patient reports: No new complaints Review of Systems: CVS:Normal, NEURO:Abnormal Objective vital signs Vital Sign Date Time Temp Pulse Resp B/P (MAP) Pulse Ox O2 Delivery O2 Flow Rate FiO2 12/12/24 16:32 98.1 66 18 110/52 (71) 97 98.1 12/12/24 08:00 Room Air* 0 21 Total Intake and Output 12/11/24 12/11/24 12/12/24 15:00 23:00 07:00 Intake Total 650 ml 840 ml Balance 650 ml 840 ml medications Current Medications Medications Dose Ordered Sig/Dorian Route Start Time Stop Time Status Last Admin Dose Admin Tamsulosin HCl 0.4 mg QPM PO 12/07/24 18:00 12/12/24 17:56 0.4 MG Amlodipine Besylate 10 mg DAILY PO 12/07/24 10:00 12/12/24 09:25 10 MG Levetiracetam 500 mg BID PO 12/07/24 10:00 12/12/24 09:25 500 MG Pantoprazole Sodium 40 mg DAILY@0600 PO 12/07/24 06:00 12/12/24 05:31 40 MG Acetaminophen 650 mg Q4HP PRN PO 12/07/24 00:30 12/12/24 09:27 650 MG Aspirin 81 mg DAILY PO 12/07/24 10:00 Hold Atorvastatin Calcium 40 mg HS PO 12/07/24 22:00 12/11/24 21:40 40 MG Calcium/Vitamin D 1 tab DAILY PO 12/08/24 10:00 12/12/24 09:26 1 TAB Enoxaparin Sodium 30 mg DAILY SC 12/08/24 10:00 12/12/24 09:26 30 MG Enteral Nutritional Formula 240 ml BIDWM PO 12/08/24 18:00 12/12/24 18:00 240 ML Lorazepam 1 mg ONCE PRN IV 12/08/24 23:15 Haloperidol Lactate 2.5 mg Q6HP PRN IM 12/08/24 23:15 UNV Multivitamins 1 tab DAILY PO 12/10/24 10:00 12/12/24 09:26 1 TAB Thiamine HCl 100 mg DAILY PO 12/10/24 10:00 12/12/24 09:26 100 MG Haloperidol Lactate 2.5 mg Q6HP PRN IM 12/10/24 03:00 Hydralazine HCl 10 mg Q6HP PRN IV 12/11/24 10:15 12/11/24 12:07 10 MG Examination: CVS:Normal, NEURO:Abnormal laboratory and microbiology Laboratory Tests 12/12/24 05:49 12/07/24 05:08 Test 12/12/24 05:49 Range/Units Serum Glucose 107 H 74-106 mg/dL Problem List/Assessment/Plan Problem List/Assessment/Plan Problem List/Assessment/Plan Acute CVA, rule out cardiac etiology Rule out structural heart disease Rule out cardiac arrhythmia Questionable history of coronary artery disease Hypertension Dyslipidemia History of CVA BPH Plan/Recommendations (Dr. Willis): 12/12/24 -negative GRAHAM. Cardiology will sign off. Neurology consulted Cardiology for possible transesophageal echocardiogram to rule out cardiac etiology of stroke. At the time of assessment, the patient is confused and only alert to self and place. Patient does not currently have a [id number] and social contact worker has been trying to find family. High School Music Director was able to contact the patient's sister who confirmed that the patient does not have a or children. Per notes, patient's sister refuses to become patient's POA. Patient's friend named Curtis trying to become patient's POA. Spoke with neurologist who would like to proceed with transesophageal echocardiogram as this may help guide his plan of treatment. Consents for procedure signed between lawn caretaker and neurologist. The patient is scheduled to undergo a transesophageal echocardiogram with bubble study today, 12/11/2024. In the meantime, continue with close telemetry monitoring and notify Cardiology for any ECG changes or arrhythmias. Thank you for allowing us to care for this patient. Please call with any questions or concerns. Plan discussed with: Patient Dietary Evaluation Review Comments: Monitor PO intake to meet 75% of his needs Expected Outcomes/Goals: Gradual wt gain Date of Service: Dec 12, 2024 Billing Provider: NGHIA WILLIS Sr., MD Common Visit Codes: CONSULT ONLY Consultation Codes: [id number] CONSULT <45MIN EKTA MOONEY GUSSET RIPPER Dec 12, 2024 19:34
[2024-12-13] VITALS (7 sets, daily range): BP systolic 97–135; BP diastolic 55–66; PULSE 66–87; RESP 17–18; TEMP 97.6–98.2; O2SAT 92–98
[2024-12-13] MEDS: HALOPERIDOL LACTATE 5 MG/ML INJ VIAL IM PRN (03:07)
[2024-12-13 06:25] LABS: Basophils # (auto) 0 10 ^3/uL (0-0.2); Basophils % (auto) 0.5 % (0.0-2.0); Eosinophils # (auto) 0.2 10 ^3/uL (0-0.8); Eosinophils % (auto) 3.5 % (0.0-7.0); Hematocrit 41.8 % (41.0-53.0); Hemoglobin 14.2 g/dL (13.5-17.5); Lymphocytes # (auto) 1.4 10 ^3/uL (0.4-5.4); Lymphocytes % (auto) 24.9 % (10.0-50.0); Mean Corpuscular Volume 91.2 fL (80.0-100.0); Monocytes # (auto) 0.7 10 ^3/uL (0-1.3); Monocytes % (auto) 12.2 % (0.0-12.0); Neutrophils # (auto) 3.2 10 ^3/uL (1.6-8.6); Neutrophils % (auto) 58.9 % (37.0-80.0); Nucleated Red Blood Cells % 0.1 %; Platelet Count (auto) 172 10^3/uL (140-450); Red Blood Cells 4.58 10^6/uL (4.5-5.90); Red Cell Distribution Width 13.5 % (11.8-14.3); White Blood Cell 5.4 10^3/uL (4.4-10.8)
[2024-12-13 06:33] LABS: Sodium 143 mmol/L (136-145)
[2024-12-13 06:34] LABS: Anion Gap 6 (5-15); Calcium 10.1 mg/dL (8.7-10.4); Carbon Dioxide 28 mmol/L (20-31)
[2024-12-13 06:37] LABS: Chloride 109 mmol/L (98-107)
[2024-12-13 06:39] LABS: BUN/Creatinine Ratio 23.9 (10.0-20.0); Blood Urea Nitrogen 17 mg/dL (9-23); Glucose 93 mg/dL (74-106)
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
[2024-12-13] MEDS: Ensure HIGH Protein Chocolate 8oz Bottle PO SCH (18:36)
--- NOTE | 2024-12-13 23:41 | DVHPN2 ---
Progress Note - Dictate Date Seen: Dec 13, 2024 Medical Necessity Reason Pt with a Central, PICC or Fol: No Subjective Mr. Lomas is a 79 years old gentleman with a history of hypertension, arthritis, seizure disorder, BPH, the patient was admitted from his SNF on 12/[facility]/2024 with a chief complaint of altered level consciousness. I saw him on 06/04/2022 for ALOC (MRI: Multiple strokes) I have seen and examined the patient, I have talked to his nurse and sitter, he is awake, oriented to person, place, His sitter has noticed obvious sundown phenomenon Urinalysis, 12/06/2024: Unremarkable Plasma alcohol, 12/06/2024: Normal UDS, 12/06/24: Negative CBC, 12/07/2024: Unremarkable CMP, 12/07/2024: Unremarkable Na, 11/27/24: 144, 12/08/24: 145, 12/09/2024: 146 Ammonia, 12/07/2024: <10 Vitamin B12, 06/14: 337, 12/07/24: 258 Folic acid, 05/2022: 24. 12/07/2024: 22.57 TSH, 05/2022: 0.99, 12/07/2024: 2.99 EEG, 06/03/2022: Normal GRAHAM, 12/11/2024: Technically good study. Sinus rhythm. Normal chamber sizes were noted. Valves appear to be structurally normal without intrinsic defects. Left ventricular function was preserved. EF noted to be around 55% with normal right ventricular function. Doppler revealed mild mitral tricuspid and mild aortic insufficiency. No pericardial effusion masses or vegetations discernible. No intra-atrial shunting. No thrombus noted in the atrial appendage. Bubble study was found to be normal. No crossover bubble seen to the left side Carotid Doppler, 12/09/2024: No hemodynamically significant stenosis by velocity criteria. Diffuse atherosclerotic calcification disease/plaque. Chest x-ray, 12/06/2024: No acute cardiopulmonary abnormality. CT head, 06/03/2022: No intracranial hemorrhage. Recommend MRI if symptoms persist CT head, 12/06/2024: 1. No acute intracranial abnormality. 2. Cerebral volume loss and moderate to marked chronic microvascular ischemia MRI head, 06/06/2022: There are multiple tiny bilateral early subacute watershed territory infarcts MR head, 12/09/2024: Multiple scattered foci of susceptibility hypointensity in the cerebrum and cerebellum could be seen with prior micro hemorrhage. Possible tiny foci of diffusion restriction in the right cerebellum, which could be infarct vs artifact. vital signs Vital Sign Date Time Temp Pulse Resp B/P (MAP) Pulse Ox O2 Delivery O2 Flow Rate FiO2 12/13/24 21:00 97.8 68 17 102/55 (71) 98 97.8 12/13/24 08:15 Room Air* 0 21 Total Intake and Output 12/12/24 12/12/24 12/13/24 15:00 23:00 07:00 Intake Total 700 ml 814 ml Output Total 400 ml Balance 700 ml 414 ml medications Current Medications Medications Dose Ordered Sig/Dorian Route Start Time Stop Time Status Last Admin Dose Admin Tamsulosin HCl 0.4 mg QPM PO 12/07/24 18:00 12/13/24 18:44 0.4 MG Amlodipine Besylate 10 mg DAILY PO 12/07/24 10:00 12/13/24 09:52 10 MG Levetiracetam 500 mg BID PO 12/07/24 10:00 12/13/24 22:12 500 MG Pantoprazole Sodium 40 mg DAILY@0600 PO 12/07/24 06:00 12/12/24 05:31 40 MG Acetaminophen 650 mg Q4HP PRN PO 12/07/24 00:30 12/12/24 09:27 650 MG Aspirin 81 mg DAILY PO 12/07/24 10:00 Hold Atorvastatin Calcium 40 mg HS PO 12/07/24 22:00 12/13/24 22:12 40 MG Calcium/Vitamin D 1 tab DAILY PO 12/08/24 10:00 12/13/24 09:51 1 TAB Enoxaparin Sodium 30 mg DAILY SC 12/08/24 10:00 12/13/24 09:51 30 MG Enteral Nutritional Formula 240 ml BIDWM PO 12/08/24 18:00 12/13/24 18:36 240 ML Lorazepam 1 mg ONCE PRN IV 12/08/24 23:15 Haloperidol Lactate 2.5 mg Q6HP PRN IM 12/08/24 23:15 UNV Multivitamins 1 tab DAILY PO 12/10/24 10:00 12/13/24 09:51 1 TAB Thiamine HCl 100 mg DAILY PO 12/10/24 10:00 12/13/24 09:51 100 MG Haloperidol Lactate 2.5 mg Q6HP PRN IM 12/10/24 03:00 12/13/24 03:07 2.5 MG Hydralazine HCl 10 mg Q6HP PRN IV 12/11/24 10:15 12/11/24 12:07 10 MG Enteral Nutritional Formula 240 ml BIDWM PO 12/13/24 09:30 12/13/24 18:36 240 ML objective General: the patient is well developed and nourished. No acute distress. MENTAL STATUS: Awake and alert. Oriented to person SPEECH, LANGUAGE, HIGHER CORTICAL FUNCTION: no aphasia or dysathria. CRANIAL NERVES: Pupils are equal, round and reactive. EOMs full and conjugate. Facial sensation intact in all three divisions bilaterally. Mandibular strength intact. Facial muscles symmetrical and strength intact. SENSATION: Sensation to touch and pinprick is normal. MOTOR: Normal tone in the upper and lower extremity. Normal muscle bulk. No fasciculations. No abnormal movements or posturing. Muscle strength of the major groups in the extremities looks normal REFLEXES: Deep tendon reflexes are symmetrical. No pathological reflexes. CEREBELLAR/COORDINATION: Deferred GAIT/STATION: deferred. laboratory and microbiology Laboratory Tests 12/13/24 05:33 Test 12/13/24 05:33 Range/Units Serum Glucose 93 74-106 mg/dL Problem List Acute metabolic encephalopathy ? Acute cerebellum stroke Clonic Multiple strokes Cognitive dysfunction ? Dementia Reported seizure Low vitamin B12 Assessment/Plan Monitoring Supportive treatment Telemetry EEG Aspirin 81 mg daily Lipitor 40 mg daily Keppra 500 mg twice daily Ativan for seizure breakthrough Haldol 2.5 mg IM Q 6 hours p.r.n. for agitation Vitamin B12 supplementation Social work case DMV report in the chart This medical document was created using an electronic medical record system with [employer] dictation system. Although this document has been carefully reviewed, there may still be some phonetic and typographical errors. These areas are purely typographical due to imperfections of the software programs, and do not reflect any compromise in the patient's medical care. Prognosis poor Dietary Evaluation Review Comments: Monitor PO intake to meet 75% of his needs Expected Outcomes/Goals: Gradual wt gain Plan discussed with: Other ALEXI ORELLANA MD Dec 13, 2024 23:41
[2024-12-14] VITALS (8 sets, daily range): BP systolic 103–163; BP diastolic 51–63; PULSE 61–83; RESP 16–18; TEMP 97.4–98; O2SAT 95–98
[2024-12-14] MEDS: CYANOCOBALAMIN (B-12) 1000 MCG/1 ML VIAL IM ONE (06:38)
[2024-12-14] MEDS: CYANOCOBALAMIN 500 MCG TAB PO SCH (07:08)
--- NOTE | 2024-12-14 10:54 | DVHPN2 ---
Progress Note - Dictate Date Seen: Dec 14, 2024 Medical Necessity Reason Pt with a Central, PICC or Fol: No Subjective Mr. Lomas is a 79 years old gentleman with a history of hypertension, arthritis, seizure disorder, BPH, the patient was admitted from his SNF on 12/06/2024 with a chief complaint of altered level consciousness. I saw him on 06/04/2022 for ALOC (MRI: Multiple strokes) I have seen and examined the patient, I have talked to his nurse and sitter, he is awake, oriented x 1-2 He was happy, he was working with his physical therapist, Urinalysis, 12/06/2024: Unremarkable Plasma alcohol, 12/06/2024: Normal UDS, 12/06/24: Negative CBC, 12/07/2024: Unremarkable CMP, 12/07/2024: Unremarkable Na, 11/27/24: 144, 12/08/24: 145, 12/09/2024: 146 Ammonia, 12/07/2024: <10 Vitamin B12, 06/14: 337, 12/07/24: 258 Folic acid, 05/2022: 24. 12/07/2024: 22.57 TSH, 05/2022: 0.99, 12/07/2024: 2.99 EEG, 06/03/2022: Normal GRAHAM, 12/11/2024: Technically good study. Sinus rhythm. Normal chamber sizes were noted. Valves appear to be structurally normal without intrinsic defects. Left ventricular function was preserved. EF noted to be around 55% with normal right ventricular function. Doppler revealed mild mitral tricuspid and mild aortic insufficiency. No pericardial effusion masses or vegetations discernible. No intra-atrial shunting. No thrombus noted in the atrial appendage. Bubble study was found to be normal. No crossover bubble seen to the left side Carotid Doppler, 12/09/2024: No hemodynamically significant stenosis by velocity criteria. Diffuse atherosclerotic calcification disease/plaque. Chest x-ray, 12/06/2024: No acute cardiopulmonary abnormality. CT head, 06/03/2022: No intracranial hemorrhage. Recommend MRI if symptoms persist CT head, 12/06/2024: 1. No acute intracranial abnormality. 2. Cerebral volume loss and moderate to marked chronic microvascular ischemia MRI head, 06/06/2022: There are multiple tiny bilateral early subacute watershed territory infarcts MR head, 12/09/2024: Multiple scattered foci of susceptibility hypointensity in the cerebrum and cerebellum could be seen with prior micro hemorrhage. Possible tiny foci of diffusion restriction in the right cerebellum, which could be infarct vs artifact. vital signs Vital Sign Date Time Temp Pulse Resp B/P (MAP) Pulse Ox O2 Delivery O2 Flow Rate FiO2 12/14/24 09:21 163/83 12/14/24 09:00 97.8 70 18 97 97.8 12/14/24 08:15 Room Air* 0 21 Total Intake and Output 12/13/24 12/13/24 12/14/24 15:00 23:00 07:00 Intake Total 1000 ml 520 ml Balance 1000 ml 520 ml medications Current Medications Medications Dose Ordered Sig/Dorian Route Start Time Stop Time Status Last Admin Dose Admin Tamsulosin HCl 0.4 mg QPM PO 12/07/24 18:00 12/13/24 18:44 0.4 MG Amlodipine Besylate 10 mg DAILY PO 12/07/24 10:00 12/14/24 09:21 10 MG Levetiracetam 500 mg BID PO 12/07/24 10:00 12/14/24 09:20 500 MG Pantoprazole Sodium 40 mg DAILY@0600 PO 12/07/24 06:00 12/14/24 06:37 40 MG Acetaminophen 650 mg Q4HP PRN PO 12/07/24 00:30 12/14/24 09:21 650 MG Aspirin 81 mg DAILY PO 12/07/24 10:00 Hold Atorvastatin Calcium 40 mg HS PO 12/07/24 22:00 12/13/24 22:12 40 MG Calcium/Vitamin D 1 tab DAILY PO 12/08/24 10:00 12/14/24 09:20 1 TAB Enoxaparin Sodium 30 mg DAILY SC 12/08/24 10:00 12/14/24 09:20 30 MG Enteral Nutritional Formula 240 ml BIDWM PO 12/08/24 18:00 12/14/24 07:44 240 ML Lorazepam 1 mg ONCE PRN IV 12/08/24 23:15 Haloperidol Lactate 2.5 mg Q6HP PRN IM 12/08/24 23:15 UNV Multivitamins 1 tab DAILY PO 12/10/24 10:00 12/14/24 09:20 1 TAB Thiamine HCl 100 mg DAILY PO 12/10/24 10:00 12/14/24 09:20 100 MG Haloperidol Lactate 2.5 mg Q6HP PRN IM 12/10/24 03:00 12/13/24 03:07 2.5 MG Hydralazine HCl 10 mg Q6HP PRN IV 12/11/24 10:15 12/11/24 12:07 10 MG Enteral Nutritional Formula 240 ml BIDWM PO 12/13/24 09:30 12/14/24 07:44 240 ML Cyanocobalamin 500 mcg DAILY PO 12/14/24 10:00 objective General: the patient is well developed and nourished. No acute distress. MENTAL STATUS: Awake and alert. Oriented to person SPEECH, LANGUAGE, HIGHER CORTICAL FUNCTION: no aphasia or dysathria. CRANIAL NERVES: Pupils are equal, round and reactive. EOMs full and conjugate. Facial sensation intact in all three divisions bilaterally. Mandibular strength intact. Facial muscles symmetrical and strength intact. SENSATION: Sensation to touch and pinprick is normal. MOTOR: Normal tone in the upper and lower extremity. Normal muscle bulk. No fasciculations. No abnormal movements or posturing. Muscle strength of the major groups in the extremities looks normal REFLEXES: Deep tendon reflexes are symmetrical. No pathological reflexes. CEREBELLAR/COORDINATION: Deferred GAIT/STATION: deferred. laboratory and microbiology Laboratory Tests 12/13/24 05:33 Test 12/13/24 05:33 Range/Units Serum Glucose 93 74-106 mg/dL Problem List Acute metabolic encephalopathy ? Acute cerebellum stroke Clonic Multiple strokes Cognitive dysfunction ? Dementia Reported seizure Low vitamin B12 Assessment/Plan Monitoring Supportive treatment Telemetry EEG Aspirin 81 mg daily Lipitor 40 mg daily Keppra 500 mg twice daily Ativan for seizure breakthrough Haldol 2.5 mg IM Q 6 hours p.r.n. for agitation Vitamin B12 supplementation Social work case DMV report in the chart This medical document was created using an electronic medical record system with [employer] dictation system. Although this document has been carefully reviewed, there may still be some phonetic and typographical errors. These areas are purely typographical due to imperfections of the software programs, and do not reflect any compromise in the patient's medical care. Prognosis poor Dietary Evaluation Review Comments: Monitor PO intake to meet 75% of his needs Expected Outcomes/Goals: Gradual wt gain Plan discussed with: ALEXI Archuleta MD Dec 14, 2024 10:54
[2024-12-14] MEDS ORDERED: NUTR-559 PO (19:16)
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
[2024-12-14] MEDS ORDERED: MULTTAB99 PO (19:30)
[2024-12-14] MEDS ORDERED: THIA100T10 PO (19:30)
--- NOTE | 2024-12-15 00:52 | DVHEEG2 ---
Neurology EEG Procedural Note Procedural Note EXAM DATE: 12/12/2024 REFERRING DOCTOR: Dr. Orellana TECHNIQUE: Eighteen channels of EEG, 2 channels of EOG, and 1 channel of EKG were recorded using the International 10/20 system. CLINICAL DATA: The patient was referred for an EEG evaluation for the evidence of seizure disorder. MEDICATIONS: See the chart BACKGROUND ACTIVITY: While the patient was awake, the background activity consisted of well regulated 8-9 Hz rhythmic waveforms, symmetrically distributed over both posterior quadrants and was reactive to eye opening. ACTIVATION: Hyperventilation: Not done Photic Stimulation: No photic convulsive response Sleep: Noticed IMPRESSION: This is a normal EEG. No focal, lateralized, or epileptiform features are noted. If clinically indicated to rule out a seizure disorder, recommend repeat EEG with sleep deprivation. [place] [address] ALEXI ORELLANA MD Dec 15, 2024 00:52
--- NOTE | 2024-12-15 07:29 | ECG ---
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
== END 2024-12-14 21:05 | DRG 72 ==
LOC: ER 18:36 → EDBD 18:36 → OVERFLOW 23:46 → CENTRAL 12-07 06:00 → TELE-CENTR 12-09 01:04
PROVIDERS: ADMIT Student in an Organized Health Care Education/Training Program; ATTEND Student in an Organized Health Care Education/Training Program
PROC: B24BZZ4 Ultrasonography of Heart with Aorta, Transesophageal (ICD-10-PCS; principal; 2024-12-11)
DX: G93.41 Metabolic encephalopathy (principal); G40.909 Epilepsy, unspecified, not intractable, without status epilepticus; E86.0 Dehydration; Z20.822 Contact with and (suspected) exposure to COVID-19; E78.5 Hyperlipidemia, unspecified; I71.40 Abdominal aortic aneurysm, without rupture, unspecified; I11.9 Hypertensive heart disease without heart failure; F01.50 Vascular dementia, unspecified severity, without behavioral disturbance, psychotic disturbance, mood disturbance, and anxiety; N40.0 Benign prostatic hyperplasia without lower urinary tract symptoms; I25.10 Atherosclerotic heart disease of native coronary artery without angina pectoris; R63.6 Underweight; F17.200 Nicotine dependence, unspecified, uncomplicated; E87.6 Hypokalemia; M85.88 Other specified disorders of bone density and structure, other site; Z86.73 Personal history of transient ischemic attack (TIA), and cerebral infarction without residual deficits; Z80.0 Family history of malignant neoplasm of digestive organs; Z82.0 Family history of epilepsy and other diseases of the nervous system; Z79.82 Long term (current) use of aspirin; Z79.899 Other long term (current) drug therapy; Z90.49 Acquired absence of other specified parts of digestive tract; Z96.641 Presence of right artificial hip joint; Z68.21 Body mass index [BMI] 21.0-21.9, adult
CPT/HCPCS: 36415; 70450; 70551; 71045; 80048; 80053; 80061; 80307; 80320; 81001; 82140; 82306; 82542; 82607; 82746; 83605; 83735; 84443; 85025; 85610; 85730; 87040; 87426; 87804; 93005; 93312; 93886; 95819; 96360; 97110; 97116; 97163; 97530; 99152; 99291; A4565; G0378; J2250; J3480